=== PATIENT | male | born 1980 | race Caucasian/White ===

== ENCOUNTER 2023-09-07 16:02 | Emergency (ER) | payer MEDICARE, OTHER, SELFPAY ==
[2023-09-07] VITALS (7 sets, daily range): BP systolic 88–132; BP diastolic 40–80; BMI 27.5
[2023-09-07 17:04] LABS: % Basophils 0.7 % (0-2); % Eosinophils 1.7 % (0-6); % Immature Granulocytes 1.8 % (0-0.5); % Lymphocytes 16.9 % (20.5-51.1); % Monocytes 6.9 % (1.7-9.3); Absolute Basophils 0.1 10^3/uL (0-0.2); Absolute Eosinophils 0.2 10^3/uL (0-0.7); Absolute Immature Granulocytes 0.2 10^3/uL (0-0.05); Absolute Monocytes 0.8 10^3/uL (0.1-0.6); Absolute Neutrophils 8.6 10^3/uL (1.4-6.5); Hematocrit 32.1 % (39.0-52.0); Mean Corp Hgb Conc. 31.2 g/dL (33.0-37.0); Mean Corpuscular Hgb 27.9 pg (27.0-31.0); Mean Corpuscular Volume 89.7 fL (80.0-94.0); Mean Platelet Volume 8.3 fL (7.4-10.4); Nucleated Red Blood Cells % 0 % (-); Red Blood Cell Count 3.58 10^6/uL (4.70-6.10); Red Cell Dist. Width 14.7 % (11.5-14.5)
[2023-09-07 17:18] LABS: Urine Albumin 1+ (Neg - Trace); Urine Bilirubin Negative (Negative); Urine Character Slightly Cloudy (Clear); Urine Color Yellow; Urine Glucose Negative (Negative); Urine Ketone Negative (Negative); Urine Leukocyte 2+ (Negative); Urine Nitrite Negative (Negative); Urine Occult Blood 4+ (Negative); Urine Urobilinogen Negative (Neg - 1+)
[2023-09-07 17:22] LABS: Platelet Count 612 10^3/uL (130-400)
[2023-09-07 17:24] LABS: Urine Squamous Cell 0-2 /LPF (Few)
[2023-09-07 17:26] LABS: Urine Bacteria Many (Negative); Urine Red Blood Cell 26-30 /HPF (0-2); Urine White Cell 30-40 /HPF (0-5)
[2023-09-07 17:26] LABS: Lactic Acid 0.7 mmol/L (0.7-2.0)
[2023-09-07 17:27] LABS: ALT (SGPT) 41 U/L (0-50); AST (SGOT) 34 U/L (17-59); Alkaline Phosphatase 535 U/L (38-126); Blood Urea Nitrogen 26 mg/dl (9-20); Calcium 10.7 mg/dl (8.4-10.2); Carbon Dioxide 31 mmol/L (22-30); Chloride 91 mmol/L (98-107); Estimated Creatinine Clearance 68 ml/min; Glucose 101 mg/dl (70-99); Potassium 4.6 mmol/L (3.5-5.1); Sodium 133 mmol/L (135-145); Total Bilirubin 0.6 mg/dl (0.2-1.3); Total Protein 7.7 g/dl (6.3-8.2); eGFR > 60.00
--- NOTE | 2023-09-07 18:13 | ED.GENMED ---
History of Present Illness
<LUX Sumner - Last Filed: 09/08/23 00:55>
General
Chief Complaint: Change in Mental Status
Source: patient and family (Mother)
Exam Limitations: none
Time Seen by Provider: 09/07/23 17:53
Travel History
Have you had any contact with someone who has COVID-19?: Unable to Answer
Do you have any symptoms of coronavirus? Fever > 100 degrees, chills, cough, shortness of breath, sore throat, loss of taste or smell, muscle aches, or headache?: Unable to Answer
History of Present Illness
History of Present Illness:
This is a 43 year old male that comes in with c/o change in mental status. Mother states that he is at [facility]. Today he was fine in the morning with there meeting. Then this afternoon he became confused around 1pm. States that he has been in
and out of the hospital recently and most of his care was at [facility]. States that Dr. Bello wound like patient sent to [facility]. Patient able to answer that he was nauseated today, vomited once and is occasionally dizzy. Denies any fever, chills,
chest pain, SOB, headache. Patient has indwelling naik.
Past History
<LUX Sumner - Last Filed: 09/08/23 00:55>
Past History
ED Past Medical History: Asthma, HTN, Psychiatric (Depression, ) and Other (necrotic bowel, )
ED Past Surgical History: Orthopedic (Left BKA) and Other (failed hernia Surgery with open abdominal wounds, Colostomy with reversal to Ileostomy)
Social History
Tobacco: Non-smoker
Alcohol: Former
Personal: Single
Living: halfway
Review of Systems
<LUX Sumner - Last Filed: 09/08/23 00:55>
Review of Systems
Other source history: family
All Other Systems: ROS reviewed and negative except as documented in HPI and ROS
Constitutional: Reports chills (according to mom); Denies fever
EENT: Reports no symptoms
Respiratory: Reports no symptoms; Denies cough or trouble breathing
Cardiac: Reports no symptoms; Denies chest pain
ABD/GI: Reports nausea and vomiting
: Reports other
Musculoskeletal: Reports no symptoms
Skin: Reports no symptoms
Neurological: Reports dizzy; Denies headache
Psychiatric: Reports no symptoms
Phy Exam
<LUX Sumner - Last Filed: 09/08/23 00:55>
General Physical Exam
General Presentation: no apparent distress
General age: appears stated age
General Skin: warm and dry
General Habitus: debilitated
General Mental: confused (In and out of Confusion. Patient oriented to place and person )
General Hydration: dry mucous membranes
ENT Exam
ENT Exam: TM's normal, pharynx normal and neck supple
Eye Exam
Eye Exam: EOMI
Cardiovascular Exam
Cardiovascular Exam: no edema, normal peripheral pulses (right leg) and tachycardia
Gastrointestinal Exam
Gastrointestinal Exam: no pulsatile mass, non distended, tender (tender to Touch, Open wounds noted on abd ) and other
External Findings: ileostomy
Musculoskeletal Exam
Musculoskeletal Exam: no edema
Skin Exam
Skin Exam: normal color, warm/dry and redness (right abd into flank. Increased warmth, sacral decub with wound vac. Negative for any redness at site. )
Psychiatric Exam
Psychiatric Exam: other (occasionally oriented and then confused at times.)
Course
<LUX Sumner - Last Filed: 09/08/23 00:55>
Orders/Labs/Results
Orders:
Orders
09/07/23 16:08
Electrocardiogram (*1) Urgent
Reason for Study: Other
Other Reason for Exam: Possible Sepsis
Cardiac Monitoring- Treatment ONCE
IV Insert/Care/Rem.- Treatment PRN
O2 Therapy [RESP] Urgent
Titrate/Wean O2 to maintain O2 sat greater than (%): 93
Special Instructions: TO MAINTAIN CONTINUOUS O2 SATS > OR = 93%
Pulse Ox/cont/shift [RESP] Urgent
Quantity: 1
Special Instructions: CONTINUOUS
09/07/23 16:09
EKG- Treatment ONCE
09/07/23 16:52
Complete Blood Count/With Diff Urgent
Comprehensive Metabolic Panel Urgent
Lactic Acid Q4H
Comment: ON ICE, CANCEL 2ND ORDER IF FIRST LACTIC ACID LEVEL <2
Blood Culture Q30M
ANNIE Source: Blood/Venous
Specimen Description:
Comment: FROM 2 SEPARATE SITES
Blood Culture Q30M
ANNIE Source: Blood/Venous
Specimen Description:
Comment: FROM 2 SEPARATE SITES
09/07/23 16:53
Urinalysis Reflex To Culture Urgent
Date Specimen was Collected: 09/07/23
Time Specimen was Collected: 16:09
Urine Microscopic Reflex Cult Urgent
Urine Culture Urgent
ANNIE Source: U
Specimen Description:
Date Specimen was Collected: 09/07/23
Time Specimen was Collected: 16:09
09/07/23 18:12
0.9% Sodium Chloride 1000 ml [Nss] 1,000 ml IV BOLUS
Piperacillin/Tazo 3.375 Gram [Zosyn] 3.375 gram in 50 ml IV NOW
09/07/23 18:41
COVID-19 Antigen Urgent
Source: Nasal Swab
Influenza A+B Rapid Molecular Urgent
ANNIE Source: Nasal Swab
Specimen Description:
09/07/23 23:16
0.9% Sodium Chloride 1000 ml [Nss] 1,000 ml IV BOLUS
09/07/23 23:57
Oxycodone [Roxicodone] 20 mg PO NOW STA
Abnormal Lab Results
09/07/23 09/07/23
16:52 16:53
WBC 12.0 H 10^3/uL
(4.8-10.8)
RBC 3.58 L 10^6/uL
(4.70-6.10)
Hgb 10.0 L g/dL
(13.0-18.0)
Hct 32.1 L %
(39.0-52.0)
MCHC 31.2 L g/dL
(33.0-37.0)
RDW 14.7 H %
(11.5-14.5)
Plt Count 612 H 10^3/uL
(130-400)
Abs Immat Gran (auto) 0.2 H 10^3/uL
(0-0.05)
Absolute Neuts (auto) 8.6 H 10^3/uL
(1.4-6.5)
Absolute Monos (auto) 0.8 H 10^3/uL
(0.1-0.6)
Immature Gran % 1.8 H %
(0-0.5)
Lymphocytes % 16.9 L %
(20.5-51.1)
Sodium 133 L mmol/L
(135-145)
Chloride 91 L mmol/L
(98-107)
Carbon Dioxide 31 H mmol/L
(22-30)
BUN 26 H mg/dl
(9-20)
Creatinine 1.4 H mg/dL
(0.7-1.3)
Glucose 101 H mg/dl
(70-99)
Calcium 10.7 H mg/dl
(8.4-10.2)
Alkaline Phosphatase 535 H U/L
(38-126)
Albumin 3.0 L g/dl
(3.5-5.0)
Ur Occult Blood Reflex 4+ A
(Negative)
Leukocyte Esterase Rfl 2+ A
(Negative)
Urine RBC 26-30 A /HPF
(0-2)
Urine WBC (Reflex) 30-40 A /HPF
(0-5)
Urine Bacteria (Reflex) Many A
(Negative)
Urine Albumin (Reflex) 1+ A
(Neg - Trace)
09/07/23 16:52
09/07/23 16:52
Leukocytosis, H/H low. Plt elevated. Sodium slightly low. Chloride low, Dehydration. Glucose nonfasting. Alk phos elevation. Urine positive for infection. Lactic acid 0.7
Vital Signs
Initial and Last Documented VS:
Initial Vital Signs
Pulse Resp Pulse Ox
105 14 97
09/07/23 16:24 09/07/23 16:24 09/07/23 16:24
Last Documented Vital Signs
Temp Pulse Resp BP Pulse Ox
98.0 F 91 18 92/66 92
09/07/23 16:38 09/07/23 23:00 09/07/23 23:00 09/07/23 22:06 09/07/23 22:15
<Kuldeep HRita Oquendo DO - Last Filed: 09/07/23 21:35>
Orders/Labs/Results
Orders:
Orders
09/07/23 16:08
Electrocardiogram (*1) Urgent
Reason for Study: Other
Other Reason for Exam: Possible Sepsis
Cardiac Monitoring- Treatment ONCE
IV Insert/Care/Rem.- Treatment PRN
O2 Therapy [RESP] Urgent
Titrate/Wean O2 to maintain O2 sat greater than (%): 93
Special Instructions: TO MAINTAIN CONTINUOUS O2 SATS > OR = 93%
Pulse Ox/cont/shift [RESP] Urgent
Quantity: 1
Special Instructions: CONTINUOUS
09/07/23 16:09
EKG- Treatment ONCE
09/07/23 16:52
Complete Blood Count/With Diff Urgent
Comprehensive Metabolic Panel Urgent
Lactic Acid Q4H
Comment: ON ICE, CANCEL 2ND ORDER IF FIRST LACTIC ACID LEVEL <2
Blood Culture Q30M
ANNIE Source: Blood/Venous
Specimen Description:
Comment: FROM 2 SEPARATE SITES
Blood Culture Q30M
ANNIE Source: Blood/Venous
Specimen Description:
Comment: FROM 2 SEPARATE SITES
09/07/23 16:53
Urinalysis Reflex To Culture Urgent
Date Specimen was Collected: 09/07/23
Time Specimen was Collected: 16:09
Urine Microscopic Reflex Cult Urgent
Urine Culture Urgent
ANNIE Source: U
Specimen Description:
Date Specimen was Collected: 09/07/23
Time Specimen was Collected: 16:09
09/07/23 18:12
0.9% Sodium Chloride 1000 ml [Nss] 1,000 ml IV BOLUS
Piperacillin/Tazo 3.375 Gram [Zosyn] 3.375 gram in 50 ml IV NOW
09/07/23 18:41
COVID-19 Antigen Urgent
Source: Nasal Swab
Influenza A+B Rapid Molecular Urgent
ANNIE Source: Nasal Swab
Specimen Description:
09/07/23 23:16
0.9% Sodium Chloride 1000 ml [Nss] 1,000 ml IV BOLUS
09/07/23 23:57
Oxycodone [Roxicodone] 20 mg PO NOW STA
Abnormal Lab Results
09/07/23 09/07/23
16:52 16:53
WBC 12.0 H 10^3/uL
(4.8-10.8)
RBC 3.58 L 10^6/uL
(4.70-6.10)
Hgb 10.0 L g/dL
(13.0-18.0)
Hct 32.1 L %
(39.0-52.0)
MCHC 31.2 L g/dL
(33.0-37.0)
RDW 14.7 H %
(11.5-14.5)
Plt Count 612 H 10^3/uL
(130-400)
Abs Immat Gran (auto) 0.2 H 10^3/uL
(0-0.05)
Absolute Neuts (auto) 8.6 H 10^3/uL
(1.4-6.5)
Absolute Monos (auto) 0.8 H 10^3/uL
(0.1-0.6)
Immature Gran % 1.8 H %
(0-0.5)
Lymphocytes % 16.9 L %
(20.5-51.1)
Sodium 133 L mmol/L
(135-145)
Chloride 91 L mmol/L
(98-107)
Carbon Dioxide 31 H mmol/L
(22-30)
BUN 26 H mg/dl
(9-20)
Creatinine 1.4 H mg/dL
(0.7-1.3)
Glucose 101 H mg/dl
(70-99)
Calcium 10.7 H mg/dl
(8.4-10.2)
Alkaline Phosphatase 535 H U/L
(38-126)
Albumin 3.0 L g/dl
(3.5-5.0)
Ur Occult Blood Reflex 4+ A
(Negative)
Leukocyte Esterase Rfl 2+ A
(Negative)
Urine RBC 26-30 A /HPF
(0-2)
Urine WBC (Reflex) 30-40 A /HPF
(0-5)
Urine Bacteria (Reflex) Many A
(Negative)
Urine Albumin (Reflex) 1+ A
(Neg - Trace)
09/07/23 16:52
09/07/23 16:52
Vital Signs
Initial and Last Documented VS:
Initial Vital Signs
Pulse Resp Pulse Ox
105 14 97
09/07/23 16:24 09/07/23 16:24 09/07/23 16:24
Last Documented Vital Signs
Temp Pulse Resp BP Pulse Ox
98.0 F 91 18 92/66 92
09/07/23 16:38 09/07/23 23:00 09/07/23 23:00 09/07/23 22:06 09/07/23 22:15
<LUX Sumner - Last Filed: 09/08/23 00:55>
MDM/Problems Addressed
Differential Diagnosis Includes:
Abd wall cellulitis, UTI
MDM/Problems Addressed:
This is a 43 year old male that is brought in with change in mental status. Mom states that he was fine this morning when they had a meeting and then around 1pm he became confused and had rigors. States that she spoke with the Bariatric doctor at
[facility] as the patient was there 1.5 weeks ago. States that they would like him transferred to [facility].
Will get labs and Urine. Spoke with Dr. Bello and he will except patient.
There is a bed at [facility] for patient and he will be transferred.
Chronic conditions affecting care:
Open abd wounds.
Acute Exacerbation and/or Progression of Chronic Illness:
Open abdominal wounds
<LUX Sumner - Last Filed: 09/08/23 00:55>
*Pulse Oximetry
Patient hypoxic: no
*EKG
Interpreted by ED Provider?: Yes
Heart Rate: 107
Rate: tachycardiac
Rhythm: sinus
Disputanta: normal axis
Interval: normal interval
QRS Pattern: normal QRS
Ischemia: no ischemia
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
Rate: normal
Interpretation: normal
Heart Rate: 71
Rhythm: sinus
*Critical Care Note
Total Time (30-74mins, 75-104mins- exclusive of procedures): Not Applicable
ED Attending Note
<LUX Sumner - Last Filed: 09/08/23 00:55>
-
Portions of this chart may have been created with voice recognition software.� Occasional wrong word or��sound alike� substitutions may have occurred due to the inherent limitations of voice recognition software.
<Kuldeep Oquendo DO - Last Filed: 09/07/23 21:35>
ED Attending Note
Patient seen and examined by attending physician: Yes
I performed the substantive portion of visit, reviewed & personally made and approve the management plan that is documented in note by myself or BETITO.: Yes
ED Attending Note:
I agree with Olivia's note
Pt sent to ER from [facility] for confusion, lethergy.
Complicated surgical history
Pt arrived lethargic. Now improved mental status after ivf.
Abd: ileostomy, open abd wound,
Skin: erythema rigth flank.
Suspect cellulitis. IVF, iv abx, transfer to [place] where his surgerier were performed.
Discharge Plan
Departure
Patient Disposition: Acute Care Hospital
Date of Disposition: 09/07/23
Time of Disposition: 18:53
Patient with high blood pressure during this ER visit?: No
Condition: Fair
Covid-19: Not Applicable
Discharge Problem:
Altered mental status, Urinary tract infection, Cellulitis of right abdominal wall
Prescriptions:
No Action
multivitamin Tablet
1 tab PO DAILY
acetaminophen 325 mg Tablet
650 mg PO Q6H PRN (Reason: mild pain/temp>100.4)
ondansetron HCl 8 mg Tablet
8 mg PO Q12H PRN (Reason: nausea/vomiting)
quetiapine 200 mg Tablet
200 mg PO HS
magnesium hydroxide [Milk of Magnesia] 400 mg/5 mL Suspension
30 ml PO HS PRN (Reason: if no bm x 3 days)
lorazepam 1 mg Tablet
1 mg PO Q6H PRN (Reason: anxiety)
fluticasone propionate [Flonase] 50 mcg/actuation [place],Suspension
1 spray INTRANASAL DAILY
quetiapine 50 mg Tablet
50 mg PO DAILY
oxycodone 20 mg Tablet
20 mg PO Q4H PRN (Reason: severe pain)
methocarbamol 500 mg Tablet
500 mg PO TID
acetaminophen 650 mg Suppository
650 mg WA Q4H PRN (Reason: mild pain/temp>100)
oxybutynin chloride 15 mg tablet extended release 24hr
30 mg PO DAILY
miconazole nitrate 2 % Cream
1 applic TOPICAL BID
Rx Instructions:
apply to torso
loperamide 2 mg Tablet
2 mg PO Q6H PRN (Reason: diarrhea)
acetaminophen 500 mg Tablet
1,000 mg PO Q6H PRN (Reason: mild pain)
bisacodyl [Dulcolax (bisacodyl)] 10 mg Suppository
10 mg WA DAILY PRN (Reason: if no results for MOM)
magnesium oxide 500 mg magnesium Tablet
500 mg PO BID
testosterone cypionate 200 mg/mL oil
200 mg IM Q14D
albuterol sulfate 90 mcg/actuation HFA aerosol inhaler
2 puff INHALATION R Q4 PRN (Reason: sob/wheezing)
amitriptyline 100 mg tablet
100 mg PO BID
midodrine 10 mg Tablet
15 mg PO TID
bupropion HCl 150 mg tablet extended release 24 hr
150 mg PO DAILY
pregabalin 50 mg Capsule
50 mg PO TID
chlorhexidine gluconate 0.12 % Mouthwash
15 ml BUCCAL BID
fluticasone propion-salmeterol [Advair HFA] 115-21 mcg/actuation Hfa Aerosol Inhaler
2 puff INHALATION R BID
omeprazole 20 mg Tablet,Delayed Release (Dr/Ec)
40 mg PO DAILY
oxycodone 20 mg Tablet
20 mg PO DAILY
Referrals:
Madi Rich MD [Family Provider] -
Hospital Transfer
Other hospital: [facility]
I certify that the patient requires transfer: Yes
Discussed case with accepting physician: Dr. Bello
Reason for transfer: higher level of care and continuity of care PCP
Interventions
Interventions:
*Risk Screen - Suicide Last Done: 09/07/23 16:41
*Neglect/Abuse Screening Last Done: 09/07/23 16:41
*ED COVID-19 Vaccine History Last Done: 09/07/23 16:42
ED- Neurological Assessment Last Done: 09/07/23 18:24
ED Swallowing Screen Last Done: 09/07/23 21:20
[2023-09-07] MEDS: NSS 1000 IV ×2 (18:27→23:18)
[2023-09-07] MEDS: ZOSYN 50 IV (18:27)
[2023-09-07 19:05] LABS: COVID-19 Antigen Negative (Negative)
[2023-09-08] VITALS: BP 82/51
[2023-09-08] MEDS: ROXICODONE 20 MG PO (00:05)
[2023-09-08 01:01] VITALS: BP 89/55
[2023-09-08] MEDS: ProAmatine 15 MG PO (01:30)
[2023-09-08 02:00] VITALS: BP 100/54
== END 2023-09-08 02:45 | disposition short-term general hospital (02) ==
LOC: EMR 16:02
PROVIDERS: Clinical Nurse Specialist Family Health; Emergency Medicine; EMERGENCY PHYSICIAN Emergency Medicine; FAMILY PHYSICIAN Internal Medicine
DX: R41.82 Altered mental status, unspecified (principal); N39.0 Urinary tract infection, site not specified; L03.311 Cellulitis of abdominal wall; J45.909 Unspecified asthma, uncomplicated; I10 Essential (primary) hypertension; F32.A Depression, unspecified; Z89.512 Acquired absence of left leg below knee
CPT/HCPCS: 99283; 96365; 96361; 80053; 81003; 81015; 83605; 85025; 87040; 87086; 87502; 87811; 93005

== ENCOUNTER 2023-09-28 21:25 | Inpatient (IN) | payer MEDICARE, OTHER, SELFPAY ==
[2023-09-28] VITALS (34 sets, daily range): BP systolic 60–132; BP diastolic 33–93; BMI 31.1
[2023-09-28 18:39] LABS: Glucose - Point of Care 95 mg/dl (70-99)
[2023-09-28 18:49] LABS: % Basophils 0.5 % (0-2); % Eosinophils 2.5 % (0-6); % Immature Granulocytes 1.8 % (0-0.5); % Lymphocytes 20.7 % (20.5-51.1); % Monocytes 7.4 % (1.7-9.3); % Neutrophils 67.1 % (42.2-75.2); Absolute Basophils 0.1 10^3/uL (0-0.2); Absolute Eosinophils 0.3 10^3/uL (0-0.7); Absolute Immature Granulocytes 0.2 10^3/uL (0-0.05); Absolute Lymphocytes 2.8 10^3/uL (1.2-3.4); Absolute Neutrophils 8.9 10^3/uL (1.4-6.5); Hematocrit 32.4 % (39.0-52.0); Hemoglobin 10.2 g/dL (13.0-18.0); Mean Corp Hgb Conc. 31.5 g/dL (33.0-37.0); Mean Corpuscular Hgb 27.3 pg (27.0-31.0); Mean Corpuscular Volume 86.9 fL (80.0-94.0); Nucleated Red Blood Cells % 0 % (-); Platelet Count 461 10^3/uL (130-400); Red Blood Cell Count 3.73 10^6/uL (4.70-6.10); Red Cell Dist. Width 14.9 % (11.5-14.5); White Blood Cell Count 13.3 10^3/uL (4.8-10.8)
[2023-09-28 19:06] LABS: Lactic Acid 0.9 mmol/L (0.7-2.0)
[2023-09-28 20:05] LABS: Urine Albumin 1+ (Neg - Trace); Urine Bilirubin 1+ (Negative); Urine Character Very Cloudy (Clear); Urine Color Yellow; Urine Glucose Negative (Negative); Urine Ketone Trace (Negative); Urine Leukocyte 2+ (Negative); Urine Nitrite Negative (Negative); Urine Occult Blood 3+ (Negative); Urine Urobilinogen Negative (Neg - 1+)
[2023-09-28 20:10] LABS: Urine Red Blood Cell 0-2 /HPF (0-2); Urine White Cell 21-25 /HPF (0-5)
[2023-09-28 20:11] LABS: Urine Bacteria Many (Negative)
--- NOTE | 2023-09-28 20:19 | ED.GENMED ---
History of Present Illness
General
Chief Complaint: Change in Mental Status
Source: patient, family, ambulance crew and detention
Exam Limitations: altered mental status
Time Seen by Provider: 09/28/23 18:41
Nursing documentation reviewed up to this point in time: agreed with
Travel History
Have you had any contact with someone who has COVID-19?: Unable to Answer
Do you have any symptoms of coronavirus? Fever > 100 degrees, chills, cough, shortness of breath, sore throat, loss of taste or smell, muscle aches, or headache?: Unable to Answer
History of Present Illness
History of Present Illness:
Patient presents to ED from detention secondary to mental status change noted along with hypotension this afternoon. Per paramedics, patient was hypotensive and that this is difficult to arouse when evaluated at scene. Upon arrival, patient is
awake and responding to simple commands. However, patient does not offer any additional information. Per family at bedside, patient unfortunately has had multiple similar episodes in the past, including last month when he was transferred to
[facility]. No source of infection was noted but his mental status improved when given IV fluids with improved blood pressure.
Past History
Past History
ED Past Medical History: Asthma, HTN, Psychiatric (Depression, ) and Other (necrotic bowel, )
ED Past Surgical History: Orthopedic (Left BKA) and Other (failed hernia Surgery with open abdominal wounds, Colostomy with reversal to Ileostomy)
Social History
Tobacco: Non-smoker
Alcohol: Former
Personal: Single
Living: detention
Review of Systems
Review of Systems
Allergies reviewed?: Yes
Unable to obtain full review of systems at this time due to: due to acuity
All Other Systems: Not applicable
Phy Exam
Physical Exam
Physical Exam:
Physical Exam
General: no apparent distress, afebrile.
Head: nc/at.
Neck: supple. no meningeal signs.
Heart: s1/s2 regular rate and rhythm, no murmur. equal radial pulses.
Lungs: no acute respiratory distress. clear bilaterally
Abdomen: normal bowel sounds. not tender. suprapubic catheter in place.
Neuro: eyes open and answering to simple commands.
Skin: no rash. 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
Extremities: no edema. left BKA
Course
Orders/Labs/Results
Orders:
Orders
09/28/23 Dinner
Regular
At Your Request: Limited Participation
09/28/23 18:36
Electrocardiogram (*1) Urgent
Reason for Study: Other
Other Reason for Exam: Possible Sepsis
09/28/23 18:37
EKG- Treatment ONCE
09/28/23 18:39
Complete Blood Count/With Diff Urgent
Lactic Acid Q4H
Comment: ON ICE, CANCEL 2ND ORDER IF FIRST LACTIC ACID LEVEL <2
09/28/23 18:51
Blood Culture Q30M
ANNIE Source: Blood/Venous
Specimen Description:
Comment: FROM 2 SEPARATE SITES
Blood Culture Q30M
ANNIE Source: Blood/Venous
Specimen Description:
Comment: FROM 2 SEPARATE SITES
09/28/23 19:50
Urinalysis Reflex To Culture Urgent
Date Specimen was Collected: 09/28/23
Time Specimen was Collected: 19:49
Urine Microscopic Reflex Cult Urgent
Urine Culture Urgent
ANNIE Source: U
Specimen Description:
Date Specimen was Collected: 09/28/23
Time Specimen was Collected: 19:49
09/28/23 20:18
Piperacillin/Tazo 3.375 Gram [Zosyn] 3.375 gram in 50 ml IV NOW
09/28/23 20:25
Comprehensive Metabolic Panel Urgent
09/28/23 20:47
NORepinephrine 4 MG/250 ML [Levophed] 4 mg in 250 ml .ROUTE .STK-MED
09/28/23 21:00
NORepinephrine 4 MG/250 ML [Levophed] 4 mg in 250 ml IV PER PROTOCOL
Initial dose in mcg/min, then titrate:: 5
Titrate to keep:: MAP > 65 mmHg
Titrate by mcg/min:: 1-2 mcg/min
Frequency of titrations (minutes):: 5
Maximum dose in ICU in mcg/min:: 30
Maximum dose in IMU in mcg/min:: 8
Maximum dose in IVU in mcg/min:: 4
Begin to taper infusion when:: Remained at goal for 4hrs
Taper by mcg/min:: 1-2 mcg/min
Frequency of taper (minutes) if patient maintains goal:: 30
Taper to off?: Yes
If infusion off & no longer maintaining goal:: Contact Provider
09/28/23 21:08
Admit/Transfer Patient As Directed
Co-Sign Provider:
Level of Care: Inpatient admission
Assign to:: ICU
Physician / Group: anne
Diagnosis: septic shock infected sacral decubirus
Reason for Hospitalization: septic shock infected sacral decubirus
Expected length of stay greater than two midnights?: Yes
ELOS- Estimated Length of Stay in days: 2
I certify the patient meets the requirements for IP care: Yes
09/28/23 21:09
Code Status As Directed
Resuscitation Status: Full Code
09/28/23 21:17
Vancomycin [Vancocin] 2,000 mg 0.9% Sodium Chloride 500 ml [Nss] 500 ml IV NOW
09/28/23 21:21
WOUND/OSTOMY CONSULT Routine
Reason for Consult: sacral debub
09/28/23 22:40
0.9% Sodium Chloride 1000 ml [Nss] 1,000 ml IV 120 mls/hr
Acetaminophen [Tylenol/Feverall] 650 mg RECTAL Q4HPRN PRN
Acetaminophen [Tylenol] 650 mg PO Q4HPRN PRN
Albuterol [ProAIR HFA INHALER] 2 puff INH R Q4HPRN PRN
Bisacodyl [Dulcolax] 10 mg RECTAL DAILYPRN PRN
Guaifenesin [Mucinex] 1,200 mg PO [id number] PRN
Magnesium Hydroxide [Milk of Magnesia] 30 ml PO HSPRN PRN
Pregabalin [Lyrica] 50 mg PO TID
methocarbamol 0 mg PO TID
09/28/23 22:40
SURGICAL CONSULT Routine
Consulting Provider: Kenrick Scruggs
Was physician already notified: Yes
UROLOGY CONSULT Routine
Consulting Provider: Carlos Zapata
Was physician already notified: Yes
Activity As Directed
Activity Level: As Tolerated
Vital Signs As Directed
Frequency: Per unit guidelines
DX Deep Vein Thrombosis Video Routine
09/28/23 22:53
Loperamide [Imodium] 2 mg PO Q6HPRN PRN
09/28/23 22:59
Ondansetron HCl [Zofran] 8 mg PO [id number] PRN
09/28/23 23:00
Oxycodone [Roxicodone] 20 mg PO Q4HPRN PRN
09/29/23 02:00
Meropenem [Merrem] 500 mg IV Q6H
Sterile Water [Sterile Water For Injection] 10 ml IV Q6H
09/29/23 06:26
Complete Blood Count/With Diff IN AM
Comprehensive Metabolic Panel IN AM
09/29/23 08:00
Amitriptyline [Elavil] 100 mg PO BID
Bupropion(24Hr)Extended Releas [WELLBUTRIN XL (24 hour extended release)] 150 mg PO DAILY
Chlorhexidine Oral Rinse 0.12% [Peridex 0.12% Oral Rinse] 15 ml PO BID
Fluticasone/Salmeterol 115/21 [Advair Hfa 115/21 Mcg Inhaler] 2 puff INH R BID
Heparin 5,000 units SC Q12
Miconazole Nitrate [Antifungal Clear] 1 applic TOPICAL BID
Midodrine [ProAmatine] 15 mg PO TID @ 0800,1200,1700
Multivitamin [Theragran] 1 tablet PO DAILY
Oxybutynin Chloride [Ditropan] 5 mg PO QID
Oxycodone [Roxicodone] 20 mg PO DAILY
Pantoprazole [Protonix] 40 mg PO DAILY
Abnormal Lab Results
09/28/23 09/28/23 09/28/23
18:39 19:50 20:25
WBC 13.3 H 10^3/uL
(4.8-10.8)
RBC 3.73 L 10^6/uL
(4.70-6.10)
Hgb 10.2 L g/dL
(13.0-18.0)
Hct 32.4 L %
(39.0-52.0)
MCHC 31.5 L g/dL
(33.0-37.0)
RDW 14.9 H %
(11.5-14.5)
Plt Count 461 H 10^3/uL
(130-400)
Abs Immat Gran (auto) 0.2 H 10^3/uL
(0-0.05)
Absolute Neuts (auto) 8.9 H 10^3/uL
(1.4-6.5)
Absolute Monos (auto) 1.0 H 10^3/uL
(0.1-0.6)
Immature Gran % 1.8 H %
(0-0.5)
Sodium 130 L mmol/L
(135-145)
BUN 25 H mg/dl
(9-20)
Calcium 11.4 H mg/dl
(8.4-10.2)
Alkaline Phosphatase 506 H U/L
(38-126)
Albumin 3.0 L g/dl
(3.5-5.0)
Urine Ketones Trace A
(Negative)
Ur Occult Blood Reflex 3+ A
(Negative)
Urine Bilirubin 1+ A
(Negative)
Leukocyte Esterase Rfl 2+ A
(Negative)
Urine WBC (Reflex) 21-25 A /HPF
(0-5)
Urine Bacteria (Reflex) Many A
(Negative)
Urine Albumin (Reflex) 1+ A
(Neg - Trace)
09/28/23 18:39
09/28/23 20:25
Vital Signs
Initial and Last Documented VS:
Initial Vital Signs
Temp Pulse Resp BP Pulse Ox
98.9 F 100 27 100/79 97
09/28/23 18:32 09/28/23 18:32 09/28/23 18:32 09/28/23 18:32 09/28/23 18:32
Last Documented Vital Signs
Temp Pulse Resp BP Pulse Ox
97.5 F 88 12 100/66 100
09/29/23 14:56 09/29/23 17:45 09/29/23 17:45 09/29/23 17:41 09/29/23 17:45
MDM/Problems Addressed
MDM/Problems Addressed:
Mental status improving with IV hydration. Patient remains afebrile, but hypotensive. Urinalysis noted. However, difficult to exclude potential colonization due to chronic in dwelling catheter. Patient will be started on empiric antibiotics.
Blood culture pending. Patient will be admitted for further evaluation and treatment.
Levophed gtt started due to persistent hypotension.
*Critical Care Note
Total Time (30-74mins, 75-104mins- exclusive of procedures): 40 min
ED Attending Note
-
Portions of this chart may have been created with voice recognition software.� Occasional wrong word or��sound alike� substitutions may have occurred due to the inherent limitations of voice recognition software.
Discharge Plan
Departure
Patient Disposition: Admit
Date of Disposition: 09/28/23
Time of Disposition: 20:37
Admit to: Telemetry
Presentation/result/management discussed w/ accepting MD/DO: Hospitalist
Discharge Problem:
Altered mental status, Hypotension, Acute UTI
Interventions
Interventions:
*Risk Screen - Suicide Last Done: 09/28/23 23:07
*General Assessment Last Done: 09/28/23 23:07
*Neglect/Abuse Screening Last Done: 09/28/23 23:07
ED- Fall Risk Assessment Last Done: 09/28/23 18:42
*ED COVID-19 Vaccine History Last Done: 09/28/23 23:07
*Nursing Disposition Last Done: 09/28/23 23:07
ED- Pulmonary Assessment Last Done: 09/28/23 18:42
ED-Psychological Assessment Last Done: 09/28/23 23:09
ED- Neurological Assessment Last Done: 09/28/23 18:42
ED- Cardiac Assessment Last Done: 09/28/23 18:42
Discharge Date and Time
Discharge Date/Time: 09/28/23 23:09
[2023-09-28] MEDS: ZOSYN 50 IV (20:32)
[2023-09-28 20:48] LABS: ALT (SGPT) 43 U/L (0-50); AST (SGOT) 29 U/L (17-59); Alkaline Phosphatase 506 U/L (38-126); Blood Urea Nitrogen 25 mg/dl (9-20); Calcium 11.4 mg/dl (8.4-10.2); Carbon Dioxide 23 mmol/L (22-30); Chloride 99 mmol/L (98-107); Glucose 93 mg/dl (70-99); Potassium 4.6 mmol/L (3.5-5.1); Sodium 130 mmol/L (135-145); Total Bilirubin 0.5 mg/dl (0.2-1.3); Total Protein 7.6 g/dl (6.3-8.2); eGFR > 60.00
[2023-09-28] MEDS: LEVOPHED 250 IV (20:58)
--- NOTE | 2023-09-28 21:12 | VATNOTE ---
1999: called to place 2nd IV site; however was unsuccessful; [employer]OUNDER was attempting to get co worker to place US guided IV.
--- NOTE | 2023-09-28 21:17 | HPS.HSE ---
Family Physician
-
Family Physician: Madi Rich
Chief Complaint
-
altered mental status
History of Present Illness
43-year-old male past medical history of necrotizing fasciitis status post ureteral resection with chronic suprapubic catheter 8 years ago, asthma, hypertension, depression, ischemic bowel status post colon resection with ileostomy, anterior
abdominal wound, sacral decubitus wound, tracheostomy presenting from shelter due to mental status change and hypotension this afternoon. As per paramedics patient was hypotensive and patient was difficult to arouse. Upon arrival patient was
awake and responding to simple commands. Patient denies any fevers or chills, nausea vomiting or abdominal pain.
Patient suprapubic catheter was accidentally pulled 2 weeks ago and since then he has been having leaking from the catheter.
Patient was recently hospitalized at [facility] for hypotension unclear source requiring 4 pressors and resulting ischemic bowel status post bowel resection with ileostomy. He could not be extubated for 2 months and subsequently had
tracheostomy.
He has chronic suprapubic catheter for having necrotizing fasciitis throughout his abdomen status post urethral resection. He has a residual chronic wound which is slowly healing.
Patient has a sacral decubitus ulcer which has been more appearing infected recently. He has not been able to see wound care physician because he is in a shelter.
History of alcohol use in the past. No smoking history.
Medical History
Past Medical History
Past Medical History: Reports Other ( necrotizing fasciitis status post ureteral resection with chronic suprapubic catheter 8 years ago, asthma, hypertension, depression, ischemic bowel status post colon resection with ileostomy, anterior abdominal
wound, sacral decubitus wound, tracheostomy)
Past Surgical History: Reports Other (Orthopedic (Left BKA) and Other (failed hernia Surgery with open abdominal wounds, Colostomy with reversal to Ileostomy))
Social History
Tobacco: Non-smoker
Alcohol: Former
Drug: None
Family History
Family History: Not pertinent
Allergies / Home Medications
Allergies reflects when Allergies were last updated in [place].
Home Medications with original date entered in [place]
Allergy/Medication List:
Allergies
Allergy/AdvReac Type Severity Reaction Status Date / Time
No Known Allergies Allergy Verified 09/28/23 18:47
Home Medications
acetaminophen 325 mg tablet 650 mg PO Q6H PRN mild pain/temp>100.4 08/12/23
fluticasone propionate 50 mcg/actuation nasal spray,suspension 1 spray intranasal DAILY 08/12/23
magnesium hydroxide 400 mg/5 mL oral suspension (Milk of Magnesia) 30 ml PO HS PRN if no bm x 3 days 08/12/23
multivitamin 1 tab PO DAILY 08/12/23
ondansetron HCl 8 mg tablet 8 mg PO Q12H PRN nausea/vomiting 08/12/23
oxycodone 20 mg tablet 20 mg PO Q4H PRN severe pain 08/12/23
quetiapine 200 mg tablet 200 mg PO HS 08/12/23
quetiapine 50 mg tablet 50 mg PO DAILY 08/12/23
acetaminophen 500 mg tablet 1,000 mg PO Q6H PRN mild pain 09/07/23
acetaminophen 650 mg rectal suppository 650 mg ME Q4H PRN mild pain/temp>100 09/07/23
albuterol sulfate 90 mcg/actuation aerosol inhaler 2 puff inhalation R Q4 PRN sob/wheezing 09/07/23
amitriptyline 100 mg tablet 100 mg PO BID 09/07/23
bisacodyl 10 mg rectal suppository (Dulcolax (bisacodyl)) 10 mg ME DAILY PRN if no results for MOM 09/07/23
bupropion HCl 150 mg 24 hr tablet, extended release 150 mg PO DAILY 09/07/23
chlorhexidine gluconate 0.12 % mouthwash 15 ml PO BID 09/07/23
fluticasone propionate 115 mcg-salmeterol 21 mcg/actuation HFA inhaler (Advair HFA) 2 puff inhalation R BID 09/07/23
loperamide 2 mg tablet 2 mg PO Q6H PRN diarrhea 09/07/23
methocarbamol 500 mg tablet 500 mg PO TID 09/07/23
miconazole nitrate 2 % topical cream 1 applic topical BID 09/07/23
midodrine 10 mg tablet 15 mg PO TID 09/07/23
omeprazole 20 mg tablet,delayed release 40 mg PO DAILY 09/07/23
oxybutynin chloride 15 mg tablet,extended release 24 hr 30 mg PO DAILY 09/07/23
oxycodone 20 mg tablet 20 mg PO DAILY 09/07/23
pregabalin 50 mg capsule 50 mg PO TID 09/07/23
testosterone cypionate 200 mg/mL intramuscular oil 200 mg IM Q14D 09/07/23
guaifenesin 600 mg tablet, extended release 12 hr 600 mg PO Q4H PRN cough 09/28/23
Review of Systems
-
History Source: Patient
A 12 point ROS was completed and negative except as noted: Yes
Constitutional: Reports No Symptoms
EENT: Reports No Symptoms
Respiratory: Reports No Symptoms
Cardiac: Reports No Symptoms
Abdomen/GI: Reports No Symptoms
: Reports No Symptoms
Musculoskeletal: Reports No Symptoms
Skin: Reports No Symptoms
Neurological: Reports No Symptoms
Endocrine: Reports No Symptoms
Hematologic/Lymphatic: Reports No Symptoms
Psych: Reports No Symptoms
Physical Exam
Vital Signs
Vital Signs
Temp Pulse Resp BP Pulse Ox
98.9 F 85 18 78/64 97
09/28/23 18:32 09/28/23 21:00 09/28/23 21:00 09/28/23 21:00 09/28/23 21:00
Physical Exam
General: Well Developed, Well Nourished and No Apparent Distress
HEENT: NormoCephalic, Moist mucous membranes and Atraumatic
Respiratory: Clear
Cardiac: S1/S2 and Regular Rhythm; No Murmur or Rub
GI: Soft, Non Tender, Non Distended and Normal Bowel Sounds; No Organomegaly
Rectal: Deferred by Provider
Musculoskeletal: No Clubbing, No Cyanosis and No Edema
Skin: No Rash
Neuro: Nonfocal/grossly intact
Laboratory Results
-
09/28/23 18:39
09/28/23 20:25
Laboratory Results
Lactic Acid Cancelled 09/28/23 22:45
Total Bilirubin 0.5 mg/dl (0.2-1.3) 09/28/23 20:25
AST 29 U/L (17-59) 09/28/23 20:25
ALT 43 U/L (0-50) 09/28/23 20:25
Alkaline Phosphatase 506 U/L (38-126) H 09/28/23 20:25
Data Reviewed
-
Lab Data: Labs Reviewed by me
Old Records: Reviewed
Impression/Plan
-
IMPRESSION:
PLAN:
# Septic shock (leukocytosis, tachycardia, hypotension) secondary to infected sacral decubitus wound versus suprapubic associated UTI
-Blood pressure 60s
-see individually below
-Check blood cultures
-Patient given second liter of IV fluids and still hypertensive
-Levophed
# Infected sacral decubitus wound
-Sacral wound appears large, necrotic with purulent drainage
-IV fluids
-Zosyn given, switch to vancomycin and meropenem given severe hypotension and complex medical history and susceptibility to resistant organism
-Levophed to be started
-No prior culture data available here
-Wound care
-Surgery consulted for debridement after patient more hemodynamically stable
#Possible suprapubic catheter associated UTI
-Urinalysis shows 21-25 WBC, +2 leukocyte esterase
-Urine culture pending
-Urology consulted to replace suprapubic catheter
-Meropenem to cover UTI
# Anterior abdominal wound
# History of necrotizing fasciitis of abdomen status post urethral stricture with chronic suprapubic catheter
-Anterior abdominal wound appears to show granulation tissue and appears to be healing
# Hypercalcemia
-IV fluids
-Check PTH
# Mild hyponatremia
-Monitor with IV fluids
History of ischemic bowel status post bowel resection with ileostomy
Recent tracheostomy
Chronic pain secondary to wounds
-Continue pregabalin, oxycodone
Orthostatic hypotension
-Continue midodrine
Asthma
-Continue inhalers
Anxiety/depression
-Continue amitriptyline, bupropion, Seroquel
Chronic anemia
-Hemoglobin stable
Full code
DVT prophylaxis�heparin
Regular diet
--- NOTE | 2023-09-28 21:49 | PHA.VAN.IN ---
Assessment
- Assessment
Renal Function: Appears similar to baseline (09/07/23 BASELINE SCR: 1.4)
Concomitant Antimicrobials: MEROPENEM
- Previous Dosing Experience
Previous Regimen: NONE
AUC Dosing Plan
- Dosing Variables
Dosing Weight (kg): 90
Dosing CrCl (ml/min): 80
Vd coefficient (L/kg): 0.6
- Empiric Dosing
Initial / Loading Dose: 2GM
Maintenance Regimen: 750MG IV Q12H
Estimated AUC (mcg*h/mL): 406
Estimated Peak (mcg*h/mL): 24.3
Estimated Trough (mcg/ml): 11.1
Estimated Half Life (H): 9.8
Pharmacokinetics Vancomycin I
- -
Patient Age: 43
Patient Sex: Male
Vancomycin Day #: 1
Indication: Skin And Soft Tissue (INFECTED SACAL DECUB/SEPSIS)
Requesting Provider: ANALILIA
Height / Weight:
Height 5 ft 7 in
Actual Weight 90 kg
Pertinent Past Medical History: CHRONIC STERLING/SNF RESIDENT
- Vital Signs / Lab Results
Temp Pulse Resp BP Pulse Ox
98.9 F 85 18 78/64 97
09/28/23 18:32 09/28/23 21:00 09/28/23 21:00 09/28/23 21:00 09/28/23 21:00
Lab Results - Hematology
09/28/23
18:39
WBC 13.3 H
Lab Results - Chemistry
09/28/23 09/28/23 09/28/23
18:39 19:17 20:25
BUN Cancelled Cancelled 25 H
Creatinine Cancelled Cancelled 1.3
Estimated Creat Clear Cancelled Cancelled
Albumin Cancelled Cancelled 3.0 L
09/28/23 09/28/23
18:39 22:45
Lactic Acid 0.9 Cancelled
Lab Results - Urine
09/28/23
19:50
Urine Nitrite (Reflex) Negative
Leukocyte Esterase Rfl 2+ A
Urine WBC (Reflex) 21-25 A
Urine Bacteria (Reflex) Many A
[2023-09-28] MEDS: VANCOCIN 540 MG IV (21:57)
--- NOTE | 2023-09-28 23:15 | PTCARENOTE ---
pt adm to ICU from ER, pt disoriented to time, yelling and cursing during care and turning/skin care, 10 pain in sacral wound, afebrile, SR HR 70s, RAC & RH IV patent- Levophed gtt infusing at 5 mcg/min, SBP 130s- titrating per work list.
multiple wounds t/o- full documentation on work list. RA Sat 96%. ileostomy bag with thin light brown stool/large amt gas- skin care/appliance changed. suprapubic cath present- purulent around site. CHG cloths. POC discussed with pt.
[2023-09-28] MEDS: NSS 1000 IV (23:58)
[2023-09-29] VITALS (82 sets, daily range): BP systolic 70–126; BP diastolic 40–96; BMI 26.9
[2023-09-29] MEDS: STERILE WATER FOR INJECTION 10 ML IV ×4 (02:02→21:10)
[2023-09-29] MEDS: MERREM 500 MG IV ×4 (02:02→21:10)
[2023-09-29] MEDS: VANCOCIN 150 IV ×2 (05:32→17:42)
[2023-09-29 06:59] LABS: % Basophils 0.6 % (0-2); % Eosinophils 3.4 % (0-6); % Immature Granulocytes 1.8 % (0-0.5); % Lymphocytes 19.6 % (20.5-51.1); % Monocytes 8.5 % (1.7-9.3); % Neutrophils 66.1 % (42.2-75.2); Absolute Basophils 0.1 10^3/uL (0-0.2); Absolute Eosinophils 0.4 10^3/uL (0-0.7); Absolute Immature Granulocytes 0.2 10^3/uL (0-0.05); Absolute Lymphocytes 2.5 10^3/uL (1.2-3.4); Absolute Monocytes 1.1 10^3/uL (0.1-0.6); Absolute Neutrophils 8.3 10^3/uL (1.4-6.5); Hematocrit 27.9 % (39.0-52.0); Hemoglobin 8.3 g/dL (13.0-18.0); Mean Corp Hgb Conc. 29.7 g/dL (33.0-37.0); Mean Corpuscular Hgb 27.3 pg (27.0-31.0); Mean Corpuscular Volume 91.8 fL (80.0-94.0); Mean Platelet Volume 8.7 fL (7.4-10.4); Nucleated Red Blood Cells % 0 % (-); Platelet Count 400 10^3/uL (130-400); Red Blood Cell Count 3.04 10^6/uL (4.70-6.10); Red Cell Dist. Width 14.9 % (11.5-14.5); White Blood Cell Count 12.6 10^3/uL (4.8-10.8)
--- NOTE | 2023-09-29 07:10 | CON.INTV ---
Addendum entered and electronically signed by Marium Espinoza, 09/29/23 16:53:
Additional critical care time in review of records, 20 mins.
Addendum entered and electronically signed by Marium Espinoza, 09/29/23 16:34:
Extensive review of [facility] records:
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
- L BKA 03/2018
- VSG in 08/2017
Plan on 05/14/23 was for elective repair of incarcerated incisional hernia repair. He underwent ex lap with ORION, repair of hernia, plan to convert VSG to BPD/DS which was aborted due to short small bowel. He had abd wall reconstruction with muscle
flaps and mesh by Plastics.
Decompensated post op with hypotension, lactic acidosis, AJIR, coagulopathy (Elev INR), severe metabolic acidosis s/p intubation. CT showing abdominal wall hematoma, RLL PNA.
Taken back for re-exploration and evacuation of hematoma, with subtotal colectomy 05/15/23 for colonic necrosis and perforation causing fecal peritonitis.
On CRRT while in ICU, developed rapid AFib as well
Taken back to OR 05/27 and 05/28 for bleeding, ORION and placement of J tube, attempted ileostomy--eventual placement wtih closure 05/30/23
IR drain placed 06/08 for LLQ collection
Developed pneumomediastinum
Returned to OR on 07/09/23 for RLQ flap debridement
Pressure wound noted in coccyx with necrosis was noted as well during hospitalization.
ECHO 04/2023: mildly decreased LV function, EF 40-45%, grade I DD. Mildly decreased RV function, mild TR PAP n/a.
Readmitted to [facility] 08/18/23-08/27/23 for hypotension, acute electrolyte imbalances, rapid weight loss (376lbs in 04/2023 down to 278 on this admission), decreased PO intake. He is noted to have large unstageable wound, abd wound appeared clean/intact
with wound vac
There was a plan to debride sacral wound on 08/24, underwent procedure 08/25 noted to be stage 4, then [facility]
.
Original Note:
Consultation
Consultation Request
Date/Time Consultation Requested: 09/28/23
Date/Time Consultation Performed: 09/29/23
Medical History
-
History of Present Illness:
Patient is a 43-year-old male with previous history of necrotizing fasciitis status post resection, asthma, Crohn's disease with ischemic bowel status post colon resection with ileostomy, sacral decubitus wound, tracheostomy, bedbound for the last 6
months presenting to [facility] with mental status changes, abrupt onset. There was noted fever at home 103.6 Fahrenheit over the weekend which was treated and did not recur. On arrival to ER patient was notably hypotensive, reportedly in the
60s, placed on IV fluids. Given refractory shock, was admitted to ICU for pressor requirements. He does not provide any additional history due to change in mentation.
History provided by parents regarding patient's overall care. He has history of severe ETOH abuse 10 years ago which caused stupor/collapse at home and was found down/unresponsive/for unknown duration of time. This resulted in admission and nec
fasc of his pelvis which was heavily debrided with loss of genitals and resulted in chronic suprapubic tube. He was also s/p L BKA during that time as well for presumed vascular compromise to the area.
He was functional at home with his amputation for the past 10 years and good care for himself, lived alone in an apt.
He then decided to undergo elective bariatric surgery at [facility] this past April, with planned duodenal switch which was aborted due to poor anatomy and patient could not be closed postoperatively. He was evaluated by plastic surgery who
performed some interventions (unknown) including wound vac and closure. He had complications during that time which included ischemic bowel s/p colostomy and ileostomy, tracheostomy and feeding tube. His trach and feeding tube were subsequently
reversed since discharge. He has had poor appetite and poor rehab since discharge. He had previously been on TPN following surgeries. His mother confirmed that he has been bedbound since [facility] admission in April. He now has large stage IV
decub which she confirms is new for him, never had this at prior hospitalization.
Record request made to [facility].
Past Medical History
Past Medical History: Other (see list below)
Social History
Tobacco: Non-smoker
Alcohol: None
Drug: None
Family History
Family History: Reviewed & Not Pertinent
Allergies / Home Medications
Allergies
Allergy/AdvReac Type Severity Reaction Status Date / Time
No Known Allergies Allergy Verified 09/28/23 18:47
Home Medications
Medication Instructions Recorded Confirmed Last Taken Type
acetaminophen 325 mg tablet 650 mg PO Q6H PRN mild 08/12/23 09/28/23 Unknown History
pain/temp>100.4
fluticasone propionate 50 1 spray intranasal DAILY 08/12/23 09/28/23 Unknown History
mcg/actuation nasal
spray,suspension
magnesium hydroxide 400 mg/5 mL 30 ml PO HS PRN if no bm x 3 days 08/12/23 09/28/23 Unknown History
oral suspension (Milk of Magnesia)
multivitamin 1 tab PO DAILY 08/12/23 09/28/23 Unknown History
ondansetron HCl 8 mg tablet 8 mg PO Q12H PRN nausea/vomiting 08/12/23 09/28/23 Unknown History
oxycodone 20 mg tablet 20 mg PO Q4H PRN severe pain 08/12/23 09/28/23 Unknown History
quetiapine 200 mg tablet 200 mg PO HS 08/12/23 09/28/23 Unknown History
quetiapine 50 mg tablet 50 mg PO DAILY 08/12/23 09/28/23 Unknown History
acetaminophen 500 mg tablet 1,000 mg PO Q6H PRN mild pain 09/07/23 09/28/23 Unknown History
acetaminophen 650 mg rectal 650 mg AL Q4H PRN mild 09/07/23 09/28/23 Unknown History
suppository pain/temp>100
albuterol sulfate 90 mcg/actuation 2 puff inhalation R Q4 PRN 09/07/23 09/28/23 Unknown History
aerosol inhaler sob/wheezing
amitriptyline 100 mg tablet 100 mg PO BID 09/07/23 09/28/23 Unknown History
bisacodyl 10 mg rectal suppository 10 mg AL DAILY PRN if no results 09/07/23 09/28/23 Unknown History
(Dulcolax (bisacodyl)) for MOM
bupropion HCl 150 mg 24 hr tablet, 150 mg PO DAILY 09/07/23 09/28/23 Unknown History
extended release
chlorhexidine gluconate 0.12 % 15 ml PO BID 09/07/23 09/28/23 Unknown History
mouthwash
fluticasone propionate 115 2 puff inhalation R BID 09/07/23 09/28/23 Unknown History
mcg-salmeterol 21 mcg/actuation
HFA inhaler (Advair HFA)
loperamide 2 mg tablet 2 mg PO Q6H PRN diarrhea 09/07/23 09/28/23 Unknown History
methocarbamol 500 mg tablet 500 mg PO TID 09/07/23 09/28/23 Unknown History
miconazole nitrate 2 % topical 1 applic topical BID 09/07/23 09/28/23 Unknown History
cream
midodrine 10 mg tablet 15 mg PO TID 09/07/23 09/28/23 Unknown History
omeprazole 20 mg tablet,delayed 40 mg PO DAILY 09/07/23 09/28/23 Unknown History
release
oxybutynin chloride 15 mg 30 mg PO DAILY 09/07/23 09/28/23 Unknown History
tablet,extended release 24 hr
oxycodone 20 mg tablet 20 mg PO DAILY 09/07/23 09/28/23 Unknown History
pregabalin 50 mg capsule 50 mg PO TID 09/07/23 09/28/23 Unknown History
testosterone cypionate 200 mg/mL 200 mg IM Q14D 09/07/23 09/28/23 Unknown History
intramuscular oil
guaifenesin 600 mg tablet, 600 mg PO Q4H PRN cough 09/28/23 09/28/23 Unknown History
extended release 12 hr
Review of Systems
-
Unable to Obtain full review of systems at this time due to: Acuity
History Source: Family, Transfer Record and Physician
All other systems: Negative unless noted
Vitals / Labs / Diagnostic Testing
Vital Signs
Temp Pulse Resp BP Pulse Ox
97.3 F 59 11 106/70 98
09/29/23 03:52 09/29/23 06:00 09/29/23 06:00 09/29/23 06:00 09/29/23 06:00
Laboratory Results
09/29/23
06:26
APTT 50.0 H
Diagnostic Testing:
Physical Exam
-
HEENT: Normocephalic, Anicteric and Moist Mucous Membranes
Cardiovascular: S1/S2, Regular Rhythm and Other (L BKA)
Respiratory: Clear and Non-Labored Respirations
GI: Flat, Tender and Other (wounds noted, ostomy with suprapubic tube, TTP, decreased overall BS)
Neurology: Awake, Alert, Oriented, AO x 3 and No Motor Deficits
Skin: Warm and Dry
General: Comfortable and Other (NAD)
Assessment
-
Patient is a 43-year-old male with previous history of necrotizing fasciitis status post resection, asthma, Crohn's disease with ischemic bowel status post colon resection with ileostomy, sacral decubitus wound, tracheostomy, bedbound for the last 6
months presenting to [facility] with mental status changes, abrupt onset. There was noted fever at home 103.6 Fahrenheit over the weekend which was treated and did not recur. On arrival to ER patient was notably hypotensive, reportedly in the
60s, placed on IV fluids. Given refractory shock, was admitted to ICU for pressor requirements.
Acute refractory septic shock requiring pressors
Stage IV decub with overlying necrotic tissue for OR today
Hypercalcemia
Hyponatremia
Bedbound x 6 mos, refusing turns
Profound weakness/deconditioning
Decrease PO intake with weight loss
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
Sacral decubitus wound recently maintained with wound vac
Chronic suprapubic catheter
Anterior abdominal wound
History of necrotizing fasciitis of abdomen status post urethral stricture with chronic suprapubic catheter
History of ischemic bowel status post bowel resection with ileostomy
Recent tracheostomy
Chronic pain secondary to wounds
Orthostatic hypotension on chronic midodrine
Asthma
Anxiety/depression
Chronic anemia
ETOH abuse
Plan
No current signs of metabolic encephalopathy or MS changes/following commands
Psychiatric history noted above, taking home meds which can be resumed
Chronic pain noted
Pain/sedation: PRN reviewed, dilaudid IV for turns/dressing changes
RASS goals: 0
Hemodynamically unstable, requiring pressors. Septic shock with potential cardiac EOD
Requiring pressors: levo @ 3, which has since been weaned off this AM
Cardiac history reviewed--orthostatic hypotension, on midodrine/resume this
Awaiting past records for ECHO
Oxygen needs: currently on room air/tolerating
Prior history of lung disease: asthma, resume inhaler PRN, not symptomatic from that standpoint
Supplemental O2 as indicated to maintain sats > 89%
CXR/CT reviewed indicating
NPO, resume diet when able
Help Desk Manager recommendations for poor PO intake
Aspiration precautions, HOB > 30 degrees
Speech therapy eval can be considered if at elevated risk
GI prophylaxis if indicated for mechanical ventilation >48 hours, prior history of GERD, stress ulcer formation in the critically ill
Creat at baseline, no history of renal disease
Void trials
Follow urine output, critical I/Os
Replete electrolytes as needed
Uro c/s for SPC
Fever and increased WBC on presentation, suspect underlying sacral wound source
For OR today for sacral wound
Started on empiric antibiotics
Cultures sent/pending
Follow fever trend, WBC count
Lactate not elevated on admission, <2
CBC stable, no signs of bleeding or coagulopathy.
DVT prophylaxis as assessed based on risk, including mechanical SCDs
Can transfuse if indicated for Hb <7, plt < 10
INR WNL
No prior h/o diabetes or thyroid disease
Monitor accuchecks PRN/SS coverage if needed
We will follow
Diagnostic Data
Chest X-Ray: 09/28/23 No acute cardiopulmonary process.
CT Scan:
Echo:
PFT's:
Reports and relevant images were personally reviewed.
-----
Critical Care time 65 mins -- The patient is admitted for acute critical illness for the treatment of vital organ failure and/or prevention of further life-threatening conditions. Total care includes time spent in review of history, physical exam,
medications, hemodynamic/ventilator parameters, laboratory data, imaging and discussion with house staff, pharmacy, respiratory therapy, c 40a crew chief, and nursing.
[2023-09-29 07:13] LABS: INR 1.42; PT 17.2 Sec (11.4-14.6)
[2023-09-29 07:17] LABS: ALT (SGPT) 32 U/L (0-50); AST (SGOT) 21 U/L (17-59); Albumin 2.3 g/dl (3.5-5.0); Alkaline Phosphatase 435 U/L (38-126); Blood Urea Nitrogen 19 mg/dl (9-20); Calcium 10.1 mg/dl (8.4-10.2); Carbon Dioxide 21 mmol/L (22-30); Chloride 107 mmol/L (98-107); Estimated Creatinine Clearance 70 ml/min; Glucose 118 mg/dl (70-99); Sodium 133 mmol/L (135-145); Total Bilirubin 0.3 mg/dl (0.2-1.3); Total Protein 6.2 g/dl (6.3-8.2); eGFR > 60.00
--- NOTE | 2023-09-29 07:54 | CON.GS ---
Addendum entered and electronically signed by Kenrick Scruggs MD 09/30/23 07:20:
Stage IV sacral decubitus ulcer present on admission
Original Note:
Medical History
-
Chief Complaint: Altered mental status
History of Present Illness:
Patient is a 43 yo M with a PMH notable for anxiety/depression, asthma, chronic pain, s/p L BKA, necrotizing fasciitis of the abdominal wall s/p multiple excisional operations and SP tube for approximately 8 years ago, s/p ventral hernia, and recent
admission to [facility] in 05/2023 for ischemic bowel s/p partial colectomy with ileostomy, feeding tube subsequently removed, and tracheostomy subsequently decannulated. He has also had chronic issues with a sacral decubitus ulcer and has
had multiple debridement procedures performed mostly in the [facility]. He was admitted to overnight due to issues with hypotension and altered mental status. He complains of back pain and sacral pain. No acute worsening of the
symptoms. No reports of fevers or chills. He denies any worsening drainage or pain overlying his sacrum. [facility] in a [facility], though he reports living by himself.
Past Medical History
Past Medical History: Psychiatric (Anxiety/depression) and Other (Chronic pain)
Past Surgical History: Bowel Resection (Colectomy with ileostomy), Hernia Repair, Urological (SP tube) and Other (Multiple abdominal and sacral debridement procedures)
Social History
Tobacco: Non-Smoker
Alcohol: Former
Drug: None
Family History
Family History: Reviewed & Not Pertinent
Allergies / Home Medications
Allergy/AdvReac Type Severity Reaction Status Date / Time
No Known Allergies Allergy Verified 09/28/23 18:47
Medication Instructions Recorded Confirmed Type
acetaminophen 325 mg tablet 650 mg PO Q6H PRN mild 08/12/23 09/28/23 History
pain/temp>100.4
fluticasone propionate 50 1 spray intranasal DAILY 08/12/23 09/28/23 History
mcg/actuation nasal
spray,suspension
magnesium hydroxide 400 mg/5 mL 30 ml PO HS PRN if no bm x 3 days 08/12/23 09/28/23 History
oral suspension (Milk of Magnesia)
multivitamin 1 tab PO DAILY 08/12/23 09/28/23 History
ondansetron HCl 8 mg tablet 8 mg PO Q12H PRN nausea/vomiting 08/12/23 09/28/23 History
oxycodone 20 mg tablet 20 mg PO Q4H PRN severe pain 08/12/23 09/28/23 History
quetiapine 200 mg tablet 200 mg PO HS 08/12/23 09/28/23 History
quetiapine 50 mg tablet 50 mg PO DAILY 08/12/23 09/28/23 History
acetaminophen 500 mg tablet 1,000 mg PO Q6H PRN mild pain 09/07/23 09/28/23 History
acetaminophen 650 mg rectal 650 mg NE Q4H PRN mild 09/07/23 09/28/23 History
suppository pain/temp>100
albuterol sulfate 90 mcg/actuation 2 puff inhalation R Q4 PRN 09/07/23 09/28/23 History
aerosol inhaler sob/wheezing
amitriptyline 100 mg tablet 100 mg PO BID 09/07/23 09/28/23 History
bisacodyl 10 mg rectal suppository 10 mg NE DAILY PRN if no results 09/07/23 09/28/23 History
(Dulcolax (bisacodyl)) for MOM
bupropion HCl 150 mg 24 hr tablet, 150 mg PO DAILY 09/07/23 09/28/23 History
extended release
chlorhexidine gluconate 0.12 % 15 ml PO BID 09/07/23 09/28/23 History
mouthwash
fluticasone propionate 115 2 puff inhalation R BID 09/07/23 09/28/23 History
mcg-salmeterol 21 mcg/actuation
HFA inhaler (Advair HFA)
loperamide 2 mg tablet 2 mg PO Q6H PRN diarrhea 09/07/23 09/28/23 History
methocarbamol 500 mg tablet 500 mg PO TID 09/07/23 09/28/23 History
miconazole nitrate 2 % topical 1 applic topical BID 09/07/23 09/28/23 History
cream
midodrine 10 mg tablet 15 mg PO TID 09/07/23 09/28/23 History
omeprazole 20 mg tablet,delayed 40 mg PO DAILY 09/07/23 09/28/23 History
release
oxybutynin chloride 15 mg 30 mg PO DAILY 09/07/23 09/28/23 History
tablet,extended release 24 hr
oxycodone 20 mg tablet 20 mg PO DAILY 09/07/23 09/28/23 History
pregabalin 50 mg capsule 50 mg PO TID 09/07/23 09/28/23 History
testosterone cypionate 200 mg/mL 200 mg IM Q14D 09/07/23 09/28/23 History
intramuscular oil
guaifenesin 600 mg tablet, 600 mg PO Q4H PRN cough 09/28/23 09/28/23 History
extended release 12 hr
Review of Systems
-
A 10 point review of systems was completed, and was negative except as per HPI.
Physical Exam
Vital Signs
Temp Pulse Resp BP Pulse Ox
95.5 F L 59 11 106/70 98
09/29/23 07:35 09/29/23 06:00 09/29/23 06:00 09/29/23 06:00 09/29/23 06:00
09/28/23 09/29/23 09/30/23
06:59 06:59 06:59
Actual Weight 77.8 kg
Body Mass Index (BMI) 26.9
Lab Results
09/29/23 06:26
09/29/23 06:26
WBC 12.6 10^3/uL (4.8-10.8) H 09/29/23 06:
Hgb 8.3 g/dL (13.0-18.0) L 09/29/23:
Hct 27.9 % (39.0-52.0) L 09/29/23 06:
Plt Count 400 10^3/uL (130-400) 09/29/23 06:
Abs Immat Gran (auto) 0.2 10^3/uL (0-0.05) H 09/29/23:
Neutrophils % 66.1 % (42.2-75.2) 09/29/23:
Physical Exam
General: Well Developed, Well Nourished and No Apparent Distress
HEENT: Normocephalic, Anicteric and Tracheotomy (Site well healed)
Respiratory: Non Labored Respirations
Cardiac: Regular Rhythm
GI: Soft, Non Tender, Non Distended, Incisions (Wide shallow midline wound with healthy granulation tissue, ilseotomy PPV with bilious output, prior G-tube site well healed) and Obese
Rectal: Other (Large sacral decubitus ulcer at least 15 x 15 cm, difficult to fully stage (III vs. IV), necrotic skin, infected soft tissue, mild purulent drainage, well opened and drained, no surrounding erythema, pain with exam)
Genito-urinary: Other (SP tube with clear urine, no purulent drainage around catheter)
Skin: Warm and Dry
Data Reviewed
-
Radiology: Image Personally Visualized and interpreted
Labs: Labs Reviewed by me
Old Records: Reviewed
Assessment / Plan
-
Patient is a 43 yo M p/w altered mental status. Difficult to tell the exact cause, possibly a mild sepsis related to his sacral decubitus ulcer, more likely related to his chronic pain medications and hypotension.
Found to have a chronic and large stage III v. IV decubitus ulcer with evidence of necrotic and infected tissue. The natural history and pathophysiology of decubitus ulcers was briefly reviewed. Given the presence of infected and necrotic tissue
recommend operative debridement. Patient unable to tolerate bedside debridement giving pain needs and size of wound.
Plan for EUA and excisional debridement of a sacral decubitus ulcer. The procedure itself, as well as the risks, benefits, and alternatives was discussed. Specifically, we discussed the risks of bleeding, infection, injury to surrounding
structures (muscle, nerves), need for further debridement and drainage procedures, and a chronic wound that may not heal. We discussed the importance of plastic surgery evaluation for consideration of a skin flap for best chances at ultimate
healing. All questions answered. Consent signed.
-- EUA and excisional debridement of a sacral decubitus ulcer
-- NPO, IVF
-- Abx: Vancomycin and Zosyn
--- NOTE | 2023-09-29 08:00 | PTCARENOTE ---
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 patient AAOx2, confused on time. patient is yelling out, doesn't remember why he was brought to hospital. patient is able to be reoriented to situation. He is in a sinus rhythm on monitor, on levo gtt at
3mcg/min infusing through 20 in right AC. Patient is on room air, 97% lungs clear, dry non productive cough at times. Patient has suprapubic catheter and ileostomy. Multiple wounds to be documented with WOC. Left BKA. Will review orders.
Lambour in to assess patient.
[2023-09-29] MEDS: NSS 1000 IV ×3 (08:09→23:06)
[2023-09-29] MEDS: ProAmatine 15 MG PO ×3 (08:10→17:41)
[2023-09-29] MEDS: ANTIFUNGAL CLEAR 1 APPLIC TOPICAL ×2 (08:10→21:09)
[2023-09-29] MEDS: THERAGRAN 1 TABLET PO (08:11)
[2023-09-29] MEDS: DITROPAN 5 MG PO ×4 (08:11→21:10)
[2023-09-29] MEDS: HEPARIN 5000 UNITS SC (08:11)
[2023-09-29] MEDS: WELLBUTRIN XL (24 hour extended release) 150 MG PO (08:11)
[2023-09-29] MEDS: LYRICA 50 MG PO ×4 (08:11→21:11)
[2023-09-29] MEDS: PROTONIX 40 MG PO (08:11)
[2023-09-29] MEDS: ELAVIL 100 MG PO ×2 (08:11→21:09)
[2023-09-29] MEDS: ROXICODONE 20 MG PO ×3 (08:11→18:17)
--- NOTE | 2023-09-29 08:20 | PTCARENOTE ---
Consent signed for debridement by Dr. Scruggs. Dr. Zapata in to also assess patient. Will try to coordinate suprapubic catheter exchange in OR.
[2023-09-29] MEDS: ADVAIR HFA 115/21 MCG INHALER 2 PUFF INH ×2 (08:31→20:41)
[2023-09-29] MEDS: ProAIR HFA INHALER 2 PUFF INH (08:41)
--- NOTE | 2023-09-29 10:50 | W.PN.HOSP.TC ---
Today's Communication/Plan
-
IV antibiotics pending cultures
Monitor for recurrent hypotension
Excisional debridement of sacral wound
Urology consultation for suprapubic cath replacement
Total Critical Care Time_55____ minutes. I was immediately available to the patient and staff. I personally examined, reviewed labs, diagnostic images/reports, interpretations, treatment plans, discussed patient care with other providers and
family or caregivers (if patient is unable to make decisions), entered orders as appropriate and documented the medical record.
Assessment / Plan
Assessment / Plan
Impression:
Presentation with hypotension and altered mental status
Toxic metabolic encephalopathy secondary to hypotension/sepsis.
Sepsis with septic shock.
-Possible sources infected stage IV sacral decubital wound, UTI (complicated UTI with suprapubic tube in place)
Acute on chronic hypotension
Hypercalcemia
Conditions prior to admission:
Recent hospitalization at [facility].
� Complicated bariatric surgery.
Ischemic bowel followed by total colectomy/ileostomy.
Prolonged metabolic encephalopathy
Prolonged ventilatory dependent respiratory failure status post tracheostomy, currently decannulated.
Status post PEG tube removed on July 2023.
History of necrotizing fasciitis 2012
Ureteral stricture with chronic suprapubic catheter in place.
Left BKA
Chronic pain syndrome with narcotic dependence
Chronic hypotension requiring midodrine
Asthma without exacerbation
Anemia of chronic disease
Anxiety/depression.
Recovered alcoholic sober for 10 years
Severe malnutrition with reported 90 pound weight loss over the last 3 months
Impression:
Toxic metabolic encephalopathy reported lethargic open presentation currently improved and mental status back to baseline
Sepsis (leukocytosis, hypotension, hypothermia)
Septic shock
Possible source: Stage IV sacral decubital wound, versus complicated UTI with suprapubic tube in place, latest reported pulled at the nursing facility.
Surgery consultation with plan for excisional debridement of sacral wound
Follow blood cultures/urine cultures/wound cultures
Empiric antibiotics currently on vancomycin and meropenem following culture data.
Urology consultation for suprapubic tube check/replacement
Septic shock with acute on chronic hypotension.
Likely combination of above as well as narcotic related and low volume status.
Off Levophed as of 3/0 5 AM.
Continue midodrine
Continue isotonic solution
Follow hemodynamics and renal function closely.
Anemia of chronic disease.
Hemoglobin 10�8 with dilution
No evidence of active bleeding.
Check iron stores, B12.
Monitor hemoglobin closely
Chronic pain syndrome requiring narcotics
Outpatient regimen including short acting oxycodone, Lyrica, methocarbamol
Continue IV hydromorphone for breakthrough pain
Reassess with consideration for reduction of long-acting narcotics along with short acting for breakthrough pain. Consider adjunctive therapy with gabapentin
Severe malnutrition.
Nutritional consult.
Anxiety/depression
Continue quetiapine
Deconditioning
Physical therapy assessment once hemodynamically stable
Full code
DVT prophylaxis subcu heparin.
Anticipated Discharge: > 48 hours
Subjective/Interval History
-
Date of Service: September 29, 2023
Objective Data
-
Labs:
Laboratory Results
09/29/23
06:26
WBC 12.6 H
Hgb 8.3 L
Hct 27.9 L
Plt Count 400
PT 17.2 H
INR 1.42
APTT 50.0 H
Sodium 133 L
Potassium 4.0
Chloride 107
Carbon Dioxide 21 L
BUN 19
Creatinine 1.3
Glucose 118 H
Calcium 10.1
Total Bilirubin 0.3
AST 21
ALT 32
Alkaline Phosphatase 435 H
Vital Signs:
Vital Signs
Temp Pulse Resp BP Pulse Ox
95.5 F L 72 14 94/61 99
09/29/23 07:35 09/29/23 10:00 09/29/23 10:00 09/29/23 10:00 09/29/23 10:05
I&O
09/28/23 09/29/23 09/30/23
06:59 06:59 06:59
Intake Total 67.8 / 199.1 491.3 / 491.3
Output Total 360 / 385 50 / 50
Balance -292.2 / -185.9 441.3 / 441.3
Physical Exam
-
General: Well Developed and No Apparent Distress
HEENT: Normocephalic, Atraumatic and Moist Mucous Membranes
Respiratory: Clear to Auscultation
Cardiac: Regular Rhythm and S1/S2; Negative Murmur, Rub or Gallop
GI: Soft, Nontender, Nondistended, Normal Bowel Sounds and Ostomy (Right lower quadrant ileostomy); Negative Organomegaly
Rectal: Deferred by Provider
Genito-urinary: Other (Suprapubic tube)
Musculoskeletal: No Clubbing, No Cyanosis and No Edema
Skin: Negative Rash
Neuro: Awake, Alert, Oriented, AO x 3 and Nonfocal/Grossly Intact
--- NOTE | 2023-09-29 11:27 | PHA.VAN.FU ---
Vancomycin Assessment / Plan
- Assessment
Renal Function: Stable
WBC's are: Stable
Concomitant Antimicrobials: meropenem
- Dosing Plan
Continue: Vanc 750mg Q12H
- Monitoring Plan
Trough Level: 09/29 05:30 - will obtain trough to ensure clearing appr with [facility]
- Follow Up
Pharmacy will continue to follow.
Vancomycin Follow UP
- -
Patient Age: 43
Patient Sex: Male
Vancomycin Day #: 2
Indication: Skin And Soft Tissue
Requesting Provider: Dr. Gomez
Pertinent Antimicrobial Allergies:
NKDA
Height / Weight:
Height 5 ft 7 in
Actual Weight 77.8 kg
Pertinent Past Medical History: L. BKA
- Vital Signs / Lab Results
Temp Pulse Resp BP Pulse Ox
95.5 F L 72 14 94/61 99
09/29/23 07:35 09/29/23 10:00 09/29/23 10:00 09/29/23 10:00 09/29/23 10:05
Lab Results - Hematology
09/28/23 09/29/23
18:39 06:26
WBC 13.3 H 12.6 H
Lab Results - Chemistry
09/28/23 09/28/23 09/28/23
18:39 19:17 20:25
BUN Cancelled Cancelled 25 H
Creatinine Cancelled Cancelled 1.3
Estimated Creat Clear Cancelled Cancelled
Albumin Cancelled Cancelled 3.0 L
09/29/23
06:26
BUN 19
Creatinine 1.3
Estimated Creat Clear 70
Albumin 2.3 L
09/28/23 09/28/23
18:39 22:45
Lactic Acid 0.9 Cancelled
Lab Results - Urine
09/28/23
19:50
Urine Nitrite (Reflex) Negative
Leukocyte Esterase Rfl 2+ A
[2023-09-29] MEDS: PERIDEX 0.12% ORAL RINSE PO ×2 (11:32→21:11)
--- NOTE | 2023-09-29 12:00 | PTCARENOTE ---
no change in patient's assessment. awaiting call back from OR for patient's pickle pumper.
--- NOTE | 2023-09-29 12:27 | W.PN.URO.CBU ---
Today's Communication / Plan
-
sp tube today or wed
Assessment / Plan
-
sp tube no obvious infection but by history at least colonized will try and change sp tube under anesthesi during wound debridememt but if cannot coordinate will do at bedside
Diagnosis
-
Date of Service: September 29, 2023
-
Patient Diagnosis:posible urosepsis in t wth sp tube but who aloso has infected appearing decubiti icu requets sp tube change
Post Op Day:
Subjective
-
no gu sxs other rather usual discfomfort of 8 fr sp tube
Objective
-
Vital Signs
Temp Pulse Resp BP Pulse Ox
95.5 F L 64 14 102/58 99
09/29/23 07:35 09/29/23 12:13 09/29/23 10:00 09/29/23 12:13 09/29/23 10:05
Intake and Output
09/28/23 09/29/23 09/30/23
06:59 06:59 06:59
Intake Total 67.8 / 199.1 753.8 / 753.8
Output Total 360 / 385 50 / 50
Balance -292.2 / -185.9 703.8 / 703.8
Intake:
IV fluids (Total) 67.8 / 199.1 753.8 / 753.8
Nss 1,000 ml @ 120 mls/hr IV . 0 / 120 720 / 720
Q8H20M [facility] Rx#:[id number]
levophed 67.8 / 79.1 33.8 / 33.8
Output:
Liquid stool amount 100 / 100
Ileostomy 100 / 100
Urine, Simms 50 / 50
Suprapubic output 260 / 260
Laboratory Results
09/29/23 06:26
09/29/23 06:26
Review of Systems
-
Abdomen/GI: Abdominal Pain
: Difficulty Voiding
Physical Exam
-
General - well developed, well nourished, no acute distress
Chest - clear bilaterally
Abdomen - soft, non-tender, positive bowel sounds, no CVAT, no incisional pain or distentionha s sp tube and clean stomas
Genitalia -
Rectal - normal
Skin - warm & dry with no rash
Neuro - AOx3, no motor deficits
Extremities - no clubbing, no cyanosis, no edema
Incision - clean, dry
Dressing - clean, dry, intact
Care Review
Data Reviewed
Discussed with: Nursing and Other (general surgery)
[2023-09-29 12:35] LABS: Iron 41 ug/dl (49-181)
--- NOTE | 2023-09-29 12:42 | W.SUR.PREOP ---
Pre-Operative Surgical Note
-
I have examined this patient prior to the performance of the scheduled procedure.
The patient's condition is unchanged from the time of the current History and
Physical and the patient is able to undergo the scheduled procedure.
[2023-09-29 12:45] LABS: Percent Saturation 23 % (20-50); Total Iron Binding Capacity 174 ug/dl (261-462)
[2023-09-29 12:58] LABS: TSH 1.16 uIU/ml (0.47-4.68)
[2023-09-29 13:17] LABS: Vitamin B12 723 pg/ml (239-931)
[2023-09-29] MEDS: DILAUDID 0.5 MG IV (14:34)
--- NOTE | 2023-09-29 14:54 | WOUNDNOTE ---
ABDOMEN AND ILEOSTOMY
--- NOTE | 2023-09-29 14:56 | WOUNDNOTE ---
WON RN note: Patient admitted with acute UTI, altered mental status and hypotension.
See H&P for complete history. Came from [facility].
PMH: Alcohol abuse, Crohns disease, bowel obstruction-colostomy, feeding tube, lukasz-rectal abscess 2007, hernia surgery resulting in complications-necrotic bowel(surgery at [facility] 05/2023) with ileostomy. L BKA, Large stage 4 sacral ulcer, non
healing abdominal surgical wound and suprapubic catheter.
Wound Location and type/assessment: Patient admitted with: Stage 4 sacral PI for OR debridement today, reviewed Dr. Scruggs's note. Abdomen with large irregular shaped slow to heal surgical site, pink at base. Ileostomy RUQ connected to SBD via
[employer] one piece appliance. Nurse states was placed on here by ICU nurses yesterday. No leakage noted. Suprapubic catheter with foul smelling drainage around tube per nurse. L ear rim with what appears to be a healing stage 2 vs unstageable PI. L
knee with abrasion, intact dry scab. R heel intact skin is very dry. Difficult to get any questions answered by patient as he is complaining of pain all over. Nurse medicated for pain.
Appetite: NPO for OR.
Pressure redistribution devices in place: Centrella max air bed. Patient needs to stay on air mattress. Pillow under R leg.
Plan: Changed all dressings. Xeroform and abd pads to abdomen. Saline WTD to sacrum. Foams to L ear rim, L knee and R heel. Will follow along peripherally with surgery and assist as needed.
Will confirm orders with hospitalist and updated nurse Malinda Pollard.
Note to case management of equipment requested for discharge: Air mattress and offloading cushion.
Recommend follow up at wound care center upon discharge.
--- NOTE | 2023-09-29 15:28 | CM ---
CM following re: discharge planning.
Discussed in Rounds, reviewed pt's chart, met with pt and pt's parents at bedside. Pt's parents participated in Rounds meeting. Per Rounds meeting to OR today for excisional debridement of sacral wound
Pt is a 43 year old male, admitted with primary dx of Septic shock. Per parents pt was at [facility], went to [facility] and was placed to [facility] for a short term rehab. Pt's parents expressed their concerns that
jail care does not equipped to care for their son.
CM spoke to [facility] SNF liaison and she confirmed that pt is not a bed hold, was there for a short term rehab and pt will be accepted back when medically stable.
D/C plan: uncertain at this time. Pt's parents feel that pt needs higher level of care than SNF.
CM will follow with discharge plan updates as hospitalization progresses.
--- NOTE | 2023-09-29 15:45 | PTCARENOTE ---
OR and FOUNDER / CEO Took patient to OR for debridement.
--- NOTE | 2023-09-29 16:06 | W.IMMPOSTOP ---
Surgical Immed Post Op Note
-
Primary Surgeon: tod
Assisting Surgeon:
Pre-op Diagnosis: uti urinary retention
Post-op Diagnosis:
same
Procedure Performed: change suprapubic tube
Anesthesia Type: general
Specimen / Cultures: 0
Estimated Blood Loss: 1cc
Complications: 0
Operative Findings: nl tract rnmoved existing colonized tube replaced in steile fashion new 18 fr with 10cc in balloon
--- NOTE | 2023-09-29 16:52 | W.IMMPOSTOP ---
Addendum entered and electronically signed by Kenrick Scruggs MD 09/29/23 17:04:
[facility]#[id number]
Original Note:
Surgical Immed Post Op Note
-
Primary Surgeon: Sheba
Assisting Surgeon: None
Pre-op Diagnosis: Sacral decubitus ulcer
Post-op Diagnosis: Sacral decubitus ulcer
Procedure Performed: Excisional debridement of sacral decubitus ulcer in preparation for skin graft
Anesthesia Type: General
Specimen / Cultures:
1. Wound culture
Estimated Blood Loss: 3 cc
Complications: None
Operative Findings:
1. Stage IV decubitus ulcer with exposed coccyx, wound measurements 20 x 15 cm
2. Sharp excisional debridement of all necrotic and infected skin and soft tissue, minimal purulence, cultures obtained
[2023-09-29] MEDS: DILAUDID 1 MG IV ×2 (17:29→21:25)
--- NOTE | 2023-09-29 20:45 | PTCARENOTE ---
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 SR HR 80s. R PICC placed by IV team, CXR done, awaiting placement confirmation. Levo gtt/NSS infusing per work list. wound dressings CDI t/o. pt refusing to lay
on side, wants to be flat in bed as it eases pain of sacral wound. POC discussed, call ash with patient.
[2023-09-29] MEDS: LEVOPHED 250 IV (21:08)
[2023-09-29] MEDS: SEROQUEL 200 MG PO (21:11)
[2023-09-29] MEDS: MUCINEX 1200 MG PO (21:11)
[2023-09-29] MEDS: TYLENOL 650 MG PO (21:12)
[2023-09-30] VITALS (45 sets, daily range): BP systolic 79–124; BP diastolic 41–83; BMI 26.8
[2023-09-30] MEDS: STERILE WATER FOR INJECTION 10 ML IV ×4 (01:04→19:47)
[2023-09-30] MEDS: MERREM 500 MG IV ×4 (01:04→19:47)
[2023-09-30] MEDS: HEPARIN 5000 UNITS SC ×3 (01:04→15:54)
[2023-09-30] MEDS: NSS 1000 IV ×2 (05:41→20:27)
[2023-09-30] MEDS: ROXICODONE 20 MG PO ×4 (05:41→20:02)
[2023-09-30] MEDS: DILAUDID 1 MG IV ×3 (05:59→13:14)
[2023-09-30 06:15] LABS: Hematocrit 28.3 % (39.0-52.0); Hemoglobin 8.4 g/dL (13.0-18.0); Mean Corp Hgb Conc. 29.7 g/dL (33.0-37.0); Mean Corpuscular Hgb 26.9 pg (27.0-31.0); Mean Corpuscular Volume 90.7 fL (80.0-94.0); Mean Platelet Volume 8.6 fL (7.4-10.4); Platelet Count 402 10^3/uL (130-400); Red Blood Cell Count 3.12 10^6/uL (4.70-6.10); Red Cell Dist. Width 15.1 % (11.5-14.5); White Blood Cell Count 9.4 10^3/uL (4.8-10.8)
[2023-09-30 06:40] LABS: Blood Urea Nitrogen 12 mg/dl (9-20); Calcium 9.7 mg/dl (8.4-10.2); Carbon Dioxide 20 mmol/L (22-30); Chloride 111 mmol/L (98-107); Estimated Creatinine Clearance 83 ml/min; Glucose 132 mg/dl (70-99); Magnesium 1.9 mg/dl (1.6-2.3); Potassium 4.5 mmol/L (3.5-5.1); Sodium 136 mmol/L (135-145); eGFR > 60.00
[2023-09-30 06:54] LABS: Vancomycin Trough 27.9 ug/ml (5-20)
--- NOTE | 2023-09-30 07:13 | W.PN.INTV ---
Today's Communication / Plan
Recommendations
Remains on low dose pressor, trial IVF bolus
Attempt to wean pressors
Refusing turns, local wound care
Pain control
Consider ID consult, cultures reviewed
PT/OT
Assessment
-
Patient is a 43-year-old male with previous history of necrotizing fasciitis status post resection, asthma, Crohn's disease with ischemic bowel status post colon resection with ileostomy, sacral decubitus wound, tracheostomy, bedbound for the last 6
months presenting to [facility] with mental status changes, abrupt onset. There was noted fever at home 103.6 Fahrenheit over the weekend which was treated and did not recur. On arrival to ER patient was notably hypotensive, reportedly in the
60s, placed on IV fluids. Given refractory shock, was admitted to ICU for pressor requirements.
Acute refractory septic shock requiring pressors
Stage IV decub with overlying necrotic tissue for OR today
Hypercalcemia
Hyponatremia
Bedbound x 6 mos, refusing turns
Profound weakness/deconditioning
Decrease PO intake with weight loss
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
Sacral decubitus wound s/p debridement 08/25/23 maintained with wound vac
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
Vertical Sleeve Gastrectomy in 08/2017
Incarcerated hernia s/p ex lap and hernia repair with attempt to convert VSG to BPD/DS which was aborted due to short small bowel
Resultant poor wound closure/Anterior abdominal wound s/p muscle flap/mesh closure c/b hematoma requiring evac
History of subtotal colectomy 05/15/23 for colonic necrosis and perforation causing fecal peritonitis
Recent tracheostomy/J tube, reversed
Chronic pain secondary to wounds
Orthostatic hypotension on chronic midodrine
Asthma
Anxiety/depression
Chronic anemia
ETOH abuse
Plan
No current signs of metabolic encephalopathy or MS changes/following commands
Psychiatric history noted above, taking home meds which can be resumed
Chronic pain noted
Pain/sedation: PRN reviewed, dilaudid IV for turns/dressing changes
RASS goals: 0
Hemodynamically unstable, requiring pressors. Septic shock with potential cardiac EOD
Requiring pressors: levo @ 6, which has since been weaned off this AM
Cardiac history reviewed--orthostatic hypotension, on midodrine/resumed on this
Normal function on prior ECHO
Trial of IVF bolus with pressor weaning
Oxygen needs: currently on room air/tolerating
Prior history of lung disease: asthma, resume inhaler PRN, not symptomatic from that standpoint
Supplemental O2 as indicated to maintain sats > 89%
CXR/CT reviewed indicating NAD
Diet resumed, intake has been poor
Filler Sifter Helper recommendations for poor PO intake
Aspiration precautions, HOB > 30 degrees
Speech therapy eval can be considered if at elevated risk
GI prophylaxis if indicated for mechanical ventilation >48 hours, prior history of GERD, stress ulcer formation in the critically ill
Creat at baseline, no history of renal disease
Void trials
Follow urine output, critical I/Os
Replete electrolytes as needed
Uro c/s for SPC
Fever and increased WBC on presentation, suspect underlying sacral wound source
s/p OR sacral wound debridement 09/29/23
Started on empiric antibiotics
Cultures reviewed
Tissue culture + proteus
Urine culture + pseudomonas/GNB
Consider ID consult
Follow fever trend, WBC count
Lactate not elevated on admission, <2
CBC stable, no signs of bleeding or coagulopathy.
DVT prophylaxis as assessed based on risk, including mechanical SCDs
Can transfuse if indicated for Hb <7, plt < 10
INR WNL
No prior h/o diabetes or thyroid disease
Monitor accuchecks PRN/SS coverage if needed
Extensive review of [facility] records:
Plan on 05/14/23 was for elective repair of incarcerated incisional hernia repair.� He underwent ex lap with ORION, repair of hernia, plan to convert VSG to BPD/DS which was aborted due to short small bowel.� He had abd wall reconstruction with muscle
flaps and mesh by Plastics. Decompensated post op with hypotension, lactic acidosis, JAIR, coagulopathy (Elev INR), severe metabolic acidosis s/p intubation.� CT showing abdominal wall hematoma, RLL PNA. Taken back for re-exploration and evacuation
of hematoma, with subtotal colectomy 05/15/23 for colonic necrosis and perforation causing fecal peritonitis. On CRRT while in ICU, developed rapid AFib as well
Taken back to OR 05/27 and 05/28 for bleeding, ORION and placement of J tube, attempted ileostomy--eventual placement wtih closure 05/30/23. IR drain placed 06/08 for LLQ collection
Developed pneumomediastinum. Returned to OR on 07/09/23 for RLQ flap debridement. Pressure wound noted in coccyx with necrosis was noted as well during hospitalization.
Readmitted to [facility] 08/18/23-08/27/23 for hypotension, acute electrolyte imbalances, rapid weight loss (376lbs in 04/2023 down to 278 on this admission), decreased PO intake.� He is noted to have large unstageable wound, abd wound appeared clean/intact
with wound vac. There was a plan to debride sacral wound on 08/24, underwent procedure 08/25 noted to be stage 4, then discharged back to [place].
Diagnostic Data
Chest X-Ray: 09/28/23 No acute cardiopulmonary process.
CT Scan:
ECHO 04/2023 @[facility]: mildly decreased LV function, EF 40-45%, grade I DD.� Mildly decreased RV function, mild TR PAP n/a.
PFT's:
Reports and relevant images were personally reviewed.
-----
Critical Care time 35 mins -- The patient is admitted for acute critical illness for the treatment of vital organ failure and/or prevention of further life-threatening conditions. Total care includes time spent in review of history, physical exam,
medications, hemodynamic/ventilator parameters, laboratory data, imaging and discussion with house staff, pharmacy, respiratory therapy, program manager, and nursing.
Subjective Dataa
Subjective Data
Date of Service:
Date of Service: September 30, 2023
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
Subjective:
doing well overnight
still remains on levo@6
refusing turns
Objective Data
Data Reviewed
Vital Signs / I&O / Oxygen:
Vital Signs
Temp Pulse Resp BP Pulse Ox
96.6 F L 63 14 89/52 94
09/29/23 23:25 09/30/23 07:00 09/30/23 07:00 09/30/23 05:30 09/30/23 07:00
Intake and Output
09/29/23 09/30/23 10/01/23
06:59 06:59 06:59
Intake Total 67.8 / 199.1 3153.8 / 3153.8
Output Total 360 / 385 1550 / 1550
Balance -292.2 / -185.9 1603.8 / 1603.8
SaO2 94
Physical Exam
General: Comfortable, Poor Appetite, Other (NAD, chronically ill appearing) and Other (deconditioned)
HEENT: Normocephalic, Anicteric and Moist Mucous Membranes
Cardiovascular: S1-S2 and Regular Rhythm
Respiratory: Clear and Non-Labored Respirations
GI: Soft, Non Distended, Tender and Other (suprapubic tube, ostomy noted, healing wound anteriorly noted/pink)
Neurology: Awake, Alert, Oriented, AO x 3, No Motor Deficits and Depressed (flat affect)
Skin: Warm, Dry and Other (wound on sacrum)
Labs/Micro/Reports
Lab Data
09/30/23 05:47
09/30/23 05:48
Laboratory Results
09/29/23
06:26
PT 17.2 H
INR 1.42
APTT 50.0 H
Microbiology
09/28/23 18:51 Blood/Venous Blood Culture - Preliminary
No Growth in 24 hours- Final report to follow
09/28/23 18:51 Blood/Venous Blood Culture - Preliminary
No Growth in 24 hours- Final report to follow
09/29/23 17:00 Other-Please specify - Other Gram Stain - Preliminary
09/29/23 17:00 Sacral Gram Stain - Preliminary
09/28/23 19:50 Urine Urine Culture - Preliminary
[2023-09-30] MEDS: LEVOPHED 250 IV (07:44)
[2023-09-30] MEDS: ELAVIL 100 MG PO ×2 (07:45→19:47)
[2023-09-30] MEDS: PROTONIX 40 MG PO (07:46)
[2023-09-30] MEDS: ProAmatine 15 MG PO ×3 (07:46→16:56)
[2023-09-30] MEDS: THERAGRAN 1 TABLET PO (07:47)
[2023-09-30] MEDS: PERIDEX 0.12% ORAL RINSE 15 ML PO ×2 (07:47→19:46)
[2023-09-30] MEDS: LYRICA 50 MG PO ×3 (07:47→19:46)
[2023-09-30] MEDS: SEROQUEL 50 MG PO (07:47)
[2023-09-30] MEDS: DITROPAN 5 MG PO ×4 (07:47→19:46)
[2023-09-30] MEDS: WELLBUTRIN XL (24 hour extended release) 150 MG PO (07:47)
[2023-09-30] MEDS: ANTIFUNGAL CLEAR 1 APPLIC TOPICAL ×2 (07:49→19:47)
[2023-09-30] MEDS: TYLENOL 650 MG PO (07:50)
--- NOTE | 2023-09-30 08:01 | PHA.VAN.FU ---
Vancomycin Assessment / Plan
- Assessment
Renal Function: SCR Decreasing
WBC's are: WNL
Concomitant Antimicrobials: meropenem
- Assessment - Trough Based Monitoring
Trough Value: 27.9
Level Today was: Appropriate (levels drawn after 3rd total dose, 2g load followed by 750mg x2 doses)
Level Comments: level drawn ~12H after previous dose of 750mg
Patient's estimated CrCl is likely overestimated and does not predict vanc clearance
- Dosing Plan
Adjust Regimen to: dosing by level
- Monitoring Plan
Random Level: 09/30 06
- Follow Up
Pharmacy will continue to follow.
Vancomycin Follow UP
- -
Patient Age: 43
Patient Sex: Male
Vancomycin Day #: 3
Indication: Skin And Soft Tissue
Requesting Provider: Dr. Gomez
Pertinent Antimicrobial Allergies:
NKDA
Height / Weight:
Height 5 ft 7 in
Actual Weight 77.5 kg
Pertinent Past Medical History: L. BKA
- Vital Signs / Lab Results
Temp Pulse Resp BP Pulse Ox
98.2 F 83 11 104/83 97
09/30/23 07:35 09/30/23 07:46 09/30/23 07:30 09/30/23 07:46 09/30/23 07:30
Lab Results - Hematology
09/28/23 09/29/23 09/30/23
18:39 06:26 05:47
WBC 13.3 H 12.6 H 9.4
Lab Results - Chemistry
09/28/23 09/28/23 09/28/23
18:39 19:17 20:25
BUN Cancelled Cancelled 25 H
Creatinine Cancelled Cancelled 1.3
Estimated Creat Clear Cancelled Cancelled
Albumin Cancelled Cancelled 3.0 L
09/29/23 09/30/23
06:26 05:48
BUN 19 12
Creatinine 1.3 1.1
Estimated Creat Clear 70 83
Albumin 2.3 L
09/28/23 09/28/23
18:39 22:45
Lactic Acid 0.9 Cancelled
Microbiology Results
09/28/23 18:51 Blood Culture - Preliminary
Blood/Venous No Growth in 24 hours- Final report to follow
09/28/23 18:51 Blood Culture - Preliminary
Blood/Venous No Growth in 24 hours- Final report to follow
09/29/23 17:00 Gram Stain - Preliminary
Other-Please specify - Other
09/29/23 17:00 Gram Stain - Preliminary
Sacral
09/28/23 19:50 Urine Culture - Preliminary
Urine
Therapeutic Drug Monitoring
Vancomycin Trough 27.9 ug/ml (5-20) H* 09/30/23 05:47
[2023-09-30] MEDS: VANCOCIN IV (08:10)
--- NOTE | 2023-09-30 08:10 | PTCARENOTE ---
recd pt, assessed. explained rationale for turning, repositioning, sitting up, declined at this time. took am meds easily with sips water, ordered and presently eating breakfast. bounding pulse RLE. abd dressing intact, call ash in reach.
levophed titration as per intervention.
[2023-09-30] MEDS: ADVAIR HFA 115/21 MCG INHALER 2 PUFF INH ×2 (08:22→21:02)
--- NOTE | 2023-09-30 09:11 | PTCARENOTE ---
declined repositioning at this time due to pain. ate small amount of breakfast, c/o 'exhausted'. Call ash in reach along with beverages. Warm blankets given. titrated back up on levophed despite midodrine dose given earlier. skin warm and dry,
rests when undisturbed.
--- NOTE | 2023-09-30 09:35 | PTCARENOTE ---
turned with assist, tolerated, positioned to L. wound RN arrived after turn, planning dressing change with surgeon in approx 1 hr, pt aware. Med as noted with oxycodone now, see MAR, and aware dilaudid can/will be given prior to wound care.
positioned as able to side with pillows.
--- NOTE | 2023-09-30 09:39 | W.PN.URO.CBU ---
Today's Communication / Plan
-
no gu changes
Assessment / Plan
-
sp tube no obvious infection but by history at least colonized fresh sp tube in good working order
Diagnosis
-
Date of Service: September 30, 2023
-
Patient Diagnosis:
Post Op Day:
Patient Diagnosis:posible urosepsis in t wth sp tube but who aloso has infected appearing decubiti icu requets sp tube change
Post Op Day:
Subjective
-
pain fron drcubiti sp tube no comlaints
Objective
-
Vital Signs
Temp Pulse Resp BP Pulse Ox
98.2 F 83 11 104/83 98
09/30/23 07:35 09/30/23 07:46 09/30/23 07:30 09/30/23 07:46 09/30/23 08:13
Intake and Output
09/29/23 09/30/23 10/01/23
06:59 06:59 06:59
Intake Total 67.8 / 199.1 3153.8 / 3296.3 780.0 / 780.0
Output Total 360 / 385 1550 / 1550
Balance -292.2 / -185.9 1603.8 / 1746.3 780.0 / 780.0
Intake:
Oral fluids 360 / 360
IV fluids (Total) 67.8 / 199.1 3003.8 / 3146.3 420.0 / 420.0
Nss 1,000 ml @ 120 mls/hr IV . 0 / 120 2640 / 2760 360 / 360
Q8H20M [facility] Rx#:[id number]
levophed 67.8 / 79.1 363.8 / 386.3 60.0 / 60.0
IV piggybacks 150 / 150
Output:
Liquid stool amount 100 / 100
Ileostomy 100 / 100
Urine, Simms 275 / 275
Suprapubic output 260 / 260 1275 / 1275
Laboratory Results
09/30/23 05:47
09/30/23 05:48
Review of Systems
-
: Difficulty Voiding
Physical Exam
-
General - well developed, well nourished, no acute distress
Chest - clear bilaterally
Abdomen - soft, non-tender, positive bowel sounds, no CVAT, no incisional pain or distention
Genitalia - normal
Rectal - normal
Skin - warm & dry with no rash
Neuro - AOx3, no motor deficits
Extremities - no clubbing, no cyanosis, no edema
Incision - clean, dry
Dressing - clean, dry, intact
Care Review
Data Reviewed
Discussed with: Nursing and Other (surgery)
--- NOTE | 2023-09-30 10:39 | W.PN.UPDATE ---
Update Note
Progress Note Update
Pt seen and evaluated at bedside. Dressing changed together with wound care team. Wound base clean and hemostatic, no further necrotic tissue or slough. No plan for further debridement at this time. Would cont with ocal wound care, offloading,
nutritional support. Pls call with ?s.
--- NOTE | 2023-09-30 10:47 | WOUNDNOTE ---
MARY RN NOTE: Followed up today with Dr. Awad who removed dressing. Premedicated for pain by nurse. Wound base much machine fur cleaner with exposed bone, no bleeding or odor. Plan is for saline WTD dressing daily as discussed with Dr. Walker, dressing applied. PCT
Liam assisted, repositioned patient onto L semi side lying position, pillow with air cushion on top under R leg. Checked other wounds and ileostomy, no changes in care. Father visiting patient post dressing change, answered all questions, support
and encouragement given to patient and father. Encouraged patient to increase protein in diet with meals. Pressure ulcer prevention measures reviewed. Instructed will have to limit time out of bed in future even with a cushion. Offloading air
mattress to continue during stay and when discharged. Will notify CM of need for both upon discharge. Recommend patient follow up with [facility] and most likely will need plastic surgeon down the line. Will follow as needed.
[2023-09-30] MEDS: NSS 250 IV (11:54)
--- NOTE | 2023-09-30 12:16 | CON.ID ---
Consultation
-
Date/Time Consultation Requested: 09/30/2023, 0936
Date/Time Consultation Performed: 09/30/2023, 1220
Requesting Provider: Dr. Kishore Peck
Performing Provider: Dr. Paula Reyna
Reason for Consultation: Large sacral wound
Chief Complaint / Past History
Chief Complaint
Low BP
History of Present Illness
I reviewed outside medical records. 43 year old male with hx Jn's gangrene s/p penectomy/orchiectomy, SPC placment 2012, hx gastric sleeve, hx ex-lap, incisional hernia repair with muscle flap complicated by hematoma, colon
nerosis/perforation/peritonitis s/p subtotal colectomy, followed by sigmoidectomy (04/2023), abdominal bleeding s/p ORION, J tube, ileosotmy (05/2023). Has abdominal wound. Developed sacral decubitus during hospitalization. Jul 2023 readmitted to
[facility] s/p I+D of stage IV sacral decubitus 08/25/23. Recent hospitalization at [facility] 09/08 with hypotension, rigors, abdominal wall erytehma. Cellulitis ruled out. Placed on cephalexin for UTI (of note Ucx +Pseudomonas). He
was discharged back to [facility]. Pt noted to have low BP with decreased MS and therefore sent to ED 3/. WBC 13.3, normal lactate, BP's 60's requiring levophed. Sacral decubitus noted to be necrotic and infected. 3/5 s/p OR debridement
of infected and necrotic tissue, coccyx bone exposed, SPC exchanged. Today, pt reports sacral pain. Otherwise, mental status has improved. Appetite fair. No N/V. No cough/SOB.
Past History
Additional Past Medical History:
DM, diet controlled
Asthma
HTN
depression
Bipolar I
hx necrotizing fasciitis s/p penectomy/orchiectomy 2012
chronic suprapubic catheter
hx Vertical sleeve gastrectomy 2017
Ex-lap, aborted duodenal switch short boer, s/p ORION, incarcerated incisional hernia repair (05/14/23) with muscle flap/mesh complicated by abd wall hematoma s/p re-op, subtotal colectomy (colon necrosis, perforation) 05/15/23.
Hemorrhage s/p ORION, J tube, ileostomy 05/2023
chronic stage 4 sacral decubitus, s/p I+D 08/25/23 at [facility]
Cholecystectomy
Hx Tracheostomy
left BKA
Allergy History:
No Known Allergies Allergy (Verified 09/28/23 18:47)
Medications Reviewed: Yes
Current Antibiotics:
Vancomycin d3
Meropenem d3
Social History
Tobacco: Non-Smoker
Alcohol: Former
Drug: None
Living: [facility]
Family History
Family History: Not Pertinent
Review of Systems
Review of Systems
General: Change in Appetite; Negative Chills
HEENT: Negative Sinus Problems, Headache or Pharyngitis
Respiratory: Negative Dyspnea or Cough
Gasteroenterology: Negative Nausea or Vomiting
Genital / Urological: Negative Flank Pain
Endocrine: Weakness
Skin / Hair / Nails: Negative Rash
Neurological: Negative Headache or Dizziness
All systems: All other systems were reviewed and were negative
Vital Signs
Temp Pulse Resp BP Pulse Ox
98.6 F 79 18 99/63 99
09/30/23 11:00 09/30/23 12:11 09/30/23 10:45 09/30/23 12:11 09/30/23 10:30
Selected Entries
09/29/23
23:25
Temp 96.6 F L
Physical Exam
Physical Exam
Constitutional: No Acute Distress
Eyes: No Conjunctival Hemorrhage and Sclera Anicteric
Oral: Poor Dentition
Cardiovascular: Regular Rate and S1/S2
Pulmonary: Clear
Gastrointestinal: Soft, Non Tender, Non Distended, Normal Bowel Sounds and Other (Ileostomy with small amt of loose stool. )
Genito-Urinary: Clear Urine (SPC)
Extremities: Negative Edema
Wound: Other (Reviewed wound photos: abd wall wound with granulating tissue. Post-debridement sacral large wound with yellow-fibrinous exudate, some necrosis, coccyx visible.)
Neurological: AO x 3
Lab / Diagnostic Study Results
09/30/23 05:47
09/30/23 05:48
Abs Immat Gran (auto) 0.2 10^3/uL (0-0.05) H 09/29/23 06:26
Absolute Neuts (auto) 8.3 10^3/uL (1.4-6.5) H 09/29/23 06:26
Absolute Lymphs (auto) 2.5 10^3/uL (1.2-3.4) 09/29/23 06:26
Absolute Monos (auto) 1.1 10^3/uL (0.1-0.6) H 09/29/23 06:26
Absolute Basos (auto) 0.1 10^3/uL (0-0.2) 09/29/23 06:26
Immature Gran % 1.8 % (0-0.5) H 09/29/23 06:26
Neutrophils % 66.1 % (42.2-75.2) 09/29/23 06:26
Lymphocytes % 19.6 % (20.5-51.1) L 09/29/23 06:26
Monocytes % 8.5 % (1.7-9.3) 09/29/23 06:26
Eosinophils % 3.4 % (0-6) 09/29/23 06:26
Basophils % 0.6 % (0-2) 09/29/23 06:26
PT 17.2 Sec (11.4-14.6) H 09/29/23 06:26
INR 1.42 09/29/23 06:26
Lactic Acid Cancelled 09/28/23 22:45
Microbiology Results
Micro:
09/29/23 17:00 Tissue Culture - Preliminary
Other-Please specify - Other Proteus mirabilis
Gram Stain - Preliminary
09/29/23 17:00 Wound Culture - Preliminary
Sacral Proteus mirabilis
Gram Stain - Preliminary
09/28/23 19:50 Urine Culture - Preliminary
Urine Pseudomonas aeruginosa
Gram negative bacilli
09/30/23 05:47 MRSA Screen - Pending
Nose
09/28/23 18:51 Blood Culture - Preliminary
Blood/Venous No Growth in 24 hours- Final report to follow
09/28/23 18:51 Blood Culture - Preliminary
Blood/Venous No Growth in 24 hours- Final report to follow
09/29/23 CXR: Extremely low lung volumes are noted with some likely minor bibasilar atelectatic changes. No pleural effusion or pneumothorax. Right PICC in place
Assessment / Plan
# Infected stage IV osteo of sacrum. Suspect chronic osteo
- 09/29/23 s/p I+D
- OR cx Proteus
- DC Vancomycin.
- Continue meropenem for now.
- If no plans for flap closure, no benefit in long course IV antibiotic.
# Additional Medical History
DM, diet controlled
Asthma
HTN
depression
Bipolar I
hx necrotizing fasciitis s/p penectomy/orchiectomy 2012
chronic suprapubic catheter
hx Vertical sleeve gastrectomy 2017
Ex-lap, aborted duodenal switch short boer, s/p ORION, incarcerated incisional hernia repair (05/14/23) with muscle flap/mesh complicated by abd wall hematoma s/p re-op, subtotal colectomy (colon necrosis, perforation) 05/15/23.
Hemorrhage s/p ORION, J tube, ileostomy 05/2023
chronic stage 4 sacral decubitus, s/p I+D 08/25/23 at [facility]
Cholecystectomy
Hx Tracheostomy
left BKA
--- NOTE | 2023-09-30 13:00 | PTCARENOTE ---
wound care done by WOC RN and surgeon, premed as noted. positioned to side, supported with pillows. abd dressing front changed per order.
[2023-09-30] MEDS: HYDROPHOR TOPICAL (14:30)
--- NOTE | 2023-09-30 15:53 | W.PN.HOSP.TC ---
Today's Communication/Plan
-
Continue IV antibiotics per
Continue wound care pending final cultures and sensitivities.
Attempt to wean off Levophed
Continue midodrine
Continue current analgesic regimen
Physical therapy assessment
Assessment / Plan
Assessment / Plan
Impression:
Presentation with hypotension and altered mental status
Toxic metabolic encephalopathy secondary to hypotension/sepsis.
Sepsis with septic shock.
-Possible sources infected stage IV sacral decubital wound, UTI (complicated UTI with suprapubic tube in place)
-Stage IV sacral wound with osteomyelitis
Acute on chronic hypotension
Hypercalcemia
Conditions prior to admission:
Recent hospitalization at [facility].
�Attempt of elective repair of incarcerated incisional hernia at [facility] on 05/18 complicated with multiorgan failure respiratory failure requiring tracheostomy and including ischemic bowel
-Second trip to the OR on 05/27 and for bleeding, ORION with G-tube placement end ileostomy placement with closure.
-Intra-abdominal collection drained by IR on 06/08
-06/09/2023 right lower quadrant flap debridement
Prolonged metabolic encephalopathy
Prolonged ventilatory dependent respiratory failure status post tracheostomy, currently decannulated.
Nonischemic cardiomyopathy with echo 05/18 with mildly decreased LVEF 40-45%
Sacral pressure wound requiring readmission to [facility] on 08/19 - 09/19
Status post PEG tube removed on July 2023.
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
Ureteral stricture with chronic suprapubic catheter in place.
Left BKA 2017
Chronic pain syndrome with narcotic dependence
Chronic hypotension requiring midodrine
Asthma without exacerbation
Anemia of chronic disease
Anxiety/depression.
Recovered alcoholic sober for 10 years
Severe malnutrition with reported 90 pound weight loss over the last 3 months
Impression:
Toxic metabolic encephalopathy reported lethargic open presentation currently improved and mental status back to baseline
Sepsis (leukocytosis, hypotension, hypothermia)
Septic shock
Possible source: Stage IV sacral decubital wound with osteomyelitis
Status post surgical sharp debridement on 08/31
Wound culture positive for Proteus
Blood cultures negative to date
Suprapubic catheter culture with Pseudomonas
Empiric antibiotics initially vancomycin meropenem narrowed to meropenem I will
Septic shock with acute on chronic hypotension.
Likely combination of above as well as narcotic related and low volume status.
Off Levophed as of 5 AM.
Continue midodrine
Continue isotonic solution
Follow hemodynamics and renal function closely.
Anemia of chronic disease.
Hemoglobin 10�8 with dilution
No evidence of active bleeding.
Iron/TIBC indicative of anemia of chronic disease/inflammation
Monitor hemoglobin closely
Chronic pain syndrome requiring narcotics
Outpatient regimen including short acting oxycodone, Lyrica, methocarbamol
Continue IV hydromorphone for breakthrough pain
Reassess with consideration for reduction of long-acting narcotics along with short acting for breakthrough pain. Consider adjunctive therapy with gabapentin
Severe malnutrition.
Nutritional consult.
Anxiety/depression
Continue quetiapine
Deconditioning
Physical therapy assessment once hemodynamically stable
Full code
DVT prophylaxis subcu heparin.
Anticipated Discharge: > 48 hours
Subjective/Interval History
-
Date of Service: September 30, 2023
Objective Data
-
Labs:
Laboratory Results
09/30/23 09/30/23
05:47 05:48
WBC 9.4
Hgb 8.4 L
Hct 28.3 L
Plt Count 402 H
Sodium 136
Potassium 4.5
Chloride 111 H
Carbon Dioxide 20 L
BUN 12
Creatinine 1.1
Glucose 132 H
Calcium 9.7
Vital Signs:
Vital Signs
Temp Pulse Resp BP Pulse Ox
98.6 F 71 8 92/52 96
09/30/23 11:00 09/30/23 14:30 09/30/23 14:30 09/30/23 14:30 09/30/23 14:30
I&O
09/29/23 09/30/23 10/01/23
06:59 06:59 06:59
Intake Total 67.8 / 199.1 3153.8 / 3296.3 1708.8 / 1708.8
Output Total 360 / 385 1550 / 1550 375 / 375
Balance -292.2 / -185.9 1603.8 / 1746.3 1333.8 / 1333.8
Physical Exam
-
General: Well Developed and No Apparent Distress
HEENT: Normocephalic, Atraumatic and Moist Mucous Membranes
Respiratory: Clear to Auscultation
Cardiac: Regular Rhythm and S1/S2; Negative Murmur, Rub or Gallop
GI: Soft, Nontender, Nondistended, Normal Bowel Sounds and Ostomy; Negative Organomegaly
Rectal: Deferred by Provider
Genito-urinary: Other (Suprapubic tube)
Musculoskeletal: No Clubbing, No Cyanosis and No Edema
Skin: Negative Rash
Neuro: Awake, Alert, Oriented, AO x 3 and Nonfocal/Grossly Intact
--- NOTE | 2023-09-30 18:16 | PTCARENOTE ---
titrated levophed again back up to 3 mcg/min. ordered dinner from local restaurant for delivery, presently comfortable and denies need to be repositioned at present. SP cath leaked, gown and dressing changed. pt notes has spasms at times and
this is not new.
--- NOTE | 2023-09-30 18:37 | PTCARENOTE ---
SP site leaked again, gown and drain sponge changed. no traction on tube, nothing overtly noted unusual, pt reports this is kind of a new problem.
[2023-09-30] MEDS: SEROQUEL 200 MG PO (19:47)
[2023-09-30] MEDS: MUCINEX 1200 MG PO (19:47)
--- NOTE | 2023-09-30 20:00 | PTCARENOTE ---
Patient received in bed, AAOX3, flat affect, needs lots of encouragement to participate in plan of care. NSR, afebrile, blood pressure as documented. palpable pulses throughout, no edema noted. Lungs diminished bibasilar, pulse ox 97% on room
air. Abdomen obese with positive bowel sounds. illeostomy draining liquid brown stool. SPT draining clear yellow urine. Dressings all clean dry and intact. Patient agreeable to repositioning at this time. RDL PICC with IVF and Levophed gtt
infusing as documented. Call ash within reach
[2023-10-01] VITALS (41 sets, daily range): BP systolic 80–110; BP diastolic 41–85; BMI 28.9
[2023-10-01] MEDS: HEPARIN 5000 UNITS SC ×4 (00:16→23:14)
[2023-10-01] MEDS: LEVOPHED 250 IV ×2 (01:45→19:55)
[2023-10-01] MEDS: STERILE WATER FOR INJECTION 10 ML IV ×4 (01:46→19:49)
[2023-10-01] MEDS: MERREM 500 MG IV ×2 (01:46→08:19)
[2023-10-01 04:40] LABS: % Basophils 0.3 % (0-2); % Eosinophils 4.2 % (0-6); % Immature Granulocytes 1.9 % (0-0.5); % Lymphocytes 24.5 % (20.5-51.1); % Monocytes 7.9 % (1.7-9.3); % Neutrophils 61.2 % (42.2-75.2); Absolute Eosinophils 0.4 10^3/uL (0-0.7); Absolute Immature Granulocytes 0.2 10^3/uL (0-0.05); Absolute Lymphocytes 2.2 10^3/uL (1.2-3.4); Absolute Monocytes 0.7 10^3/uL (0.1-0.6); Absolute Neutrophils 5.5 10^3/uL (1.4-6.5); Hematocrit 24.6 % (39.0-52.0); Hemoglobin 7.4 g/dL (13.0-18.0); Mean Corp Hgb Conc. 30.1 g/dL (33.0-37.0); Mean Corpuscular Hgb 27.1 pg (27.0-31.0); Mean Corpuscular Volume 90.1 fL (80.0-94.0); Mean Platelet Volume 8.3 fL (7.4-10.4); Nucleated Red Blood Cells % 0 % (-); Platelet Count 335 10^3/uL (130-400); Red Blood Cell Count 2.73 10^6/uL (4.70-6.10); Red Cell Dist. Width 15.1 % (11.5-14.5)
--- NOTE | 2023-10-01 05:00 | PTCARENOTE ---
SPT leaking, abdominal dressing changed, CHG bath given, linens changed.
[2023-10-01 05:08] LABS: Blood Urea Nitrogen 8 mg/dl (9-20); Calcium 9.3 mg/dl (8.4-10.2); Carbon Dioxide 21 mmol/L (22-30); Chloride 112 mmol/L (98-107); Estimated Creatinine Clearance 101 ml/min; Glucose 70 mg/dl (70-99); Potassium 3.3 mmol/L (3.5-5.1); Sodium 138 mmol/L (135-145); eGFR > 60.00
[2023-10-01 05:13] LABS: Vancomycin Random 18.3 ug/ml
[2023-10-01] MEDS: DILAUDID 1 MG IV ×3 (05:36→19:59)
[2023-10-01] MEDS: KCL 40 MEQ PO ×2 (05:53→11:43)
--- NOTE | 2023-10-01 07:16 | W.PN.INTV ---
Addendum entered and electronically signed by Marium Espinoza DO 10/01/23 16:29:
Transferred to IMU
No further pulmonary recs, we will sign off upon transfer
Original Note:
Today's Communication / Plan
Recommendations
Remains on low dose pressor, continue to wean as tolerated
On abx per ID
Continue PT/OT, turns/ambulation, OOB
Pain control
Can likely transfer to IMU while on low pressor requirements
Assessment
-
Patient is a 43-year-old male with previous history of necrotizing fasciitis status post resection, asthma, Crohn's disease with ischemic bowel status post colon resection with ileostomy, sacral decubitus wound, tracheostomy, bedbound for the last 6
months presenting to [place] [facility] with mental status changes, abrupt onset. There was noted fever at home 103.6 Fahrenheit over the weekend which was treated and did not recur. On arrival to ER patient was notably hypotensive, reportedly in the
60s, placed on IV fluids. Given refractory shock, was admitted to ICU for pressor requirements.
Acute refractory septic shock requiring pressors
Stage IV decub with overlying necrotic tissue for OR today
Hypercalcemia
Hyponatremia
Bedbound x 6 mos, refusing turns
Profound weakness/deconditioning
Decrease PO intake with weight loss
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
Sacral decubitus wound s/p debridement 08/25/23 maintained with wound vac
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
Vertical Sleeve Gastrectomy in 08/2017
Incarcerated hernia s/p ex lap and hernia repair with attempt to convert VSG to BPD/DS which was aborted due to short small bowel
Resultant poor wound closure/Anterior abdominal wound s/p muscle flap/mesh closure c/b hematoma requiring evac
History of subtotal colectomy 05/15/23 for colonic necrosis and perforation causing fecal peritonitis
Recent tracheostomy/J tube, reversed
Chronic pain secondary to wounds
Orthostatic hypotension on chronic midodrine
Asthma
Anxiety/depression
Chronic anemia
ETOH abuse
Plan
No current signs of metabolic encephalopathy or MS changes/following commands
Psychiatric history noted above, taking home meds which can be resumed
Chronic pain noted
Pain/sedation: PRN reviewed, dilaudid IV for turns/dressing changes
RASS goals: 0
Hemodynamically unstable, requiring pressors. Septic shock with potential cardiac EOD
Requiring pressors: levo @ 6, weaned to 3
Cardiac history reviewed--orthostatic hypotension, on midodrine/resumed on this
Normal function on prior ECHO
Oxygen needs: currently on room air/tolerating
Prior history of lung disease: asthma, resume inhaler PRN, not symptomatic from that standpoint
Supplemental O2 as indicated to maintain sats > 89%
CXR/CT reviewed indicating NAD
Diet resumed, intake has been poor
Client Finance Analyst recommendations for poor PO intake
Aspiration precautions, HOB > 30 degrees
Speech therapy eval can be considered if at elevated risk
GI prophylaxis if indicated for mechanical ventilation >48 hours, prior history of GERD, stress ulcer formation in the critically ill
Creat at baseline, no history of renal disease
Void trials
Follow urine output, critical I/Os
Replete electrolytes as needed
Uro c/s for SPC
Fever and increased WBC on presentation, suspect underlying sacral wound source
s/p OR sacral wound debridement 09/29/23
Started on empiric antibiotics
Cultures reviewed
Tissue culture + proteus
Urine culture + pseudomonas/GNB
ID consulted
Follow fever trend, WBC count
Lactate not elevated on admission, <2
CBC stable, no signs of bleeding or coagulopathy.
DVT prophylaxis as assessed based on risk, including mechanical SCDs
Can transfuse if indicated for Hb <7, plt < 10
INR WNL
No prior h/o diabetes or thyroid disease
Monitor accuchecks PRN/SS coverage if needed
Extensive [facility]:
Plan on 05/14/23 was for elective repair of incarcerated incisional hernia repair.� He underwent ex lap with ORION, repair of hernia, plan to convert VSG to BPD/DS which was aborted due to short small bowel.� He had abd wall reconstruction with muscle
flaps and mesh by Plastics. Decompensated post op with hypotension, lactic acidosis, JAIR, coagulopathy (Elev INR), severe metabolic acidosis s/p intubation.� CT showing abdominal wall hematoma, RLL PNA. Taken back for re-exploration and evacuation
of hematoma, with subtotal colectomy 05/15/23 for colonic necrosis and perforation causing fecal peritonitis. On CRRT while in ICU, developed rapid AFib as well
Taken back to OR 05/27 and 05/28 for bleeding, ORION and placement of J tube, attempted ileostomy--eventual placement wtih closure 05/30/23. IR drain placed 06/08 for LLQ collection
Developed pneumomediastinum. Returned to [place] on 07/09/23 for RLQ flap debridement. Pressure wound noted in coccyx with necrosis was noted as well during hospitalization.
[facility]23 for hypotension, acute electrolyte imbalances, rapid weight loss (376lbs in 04/2023 down to 278 on this admission), decreased PO intake.� He is noted to have large unstageable wound, abd wound appeared clean/intact
with wound vac. There was a plan to debride sacral wound on 08/24, underwent procedure 08/25 noted to be stage 4, then discharged back to [place].
Diagnostic Data
Chest X-Ray: 09/28/23 No acute cardiopulmonary process.
CT Scan:
ECHO 04/2023 [facility]: mildly decreased LV function, EF 40-45%, grade I DD.� Mildly decreased RV function, mild TR PAP n/a.
PFT's:
Reports and relevant images were personally reviewed.
-----
Critical Care time 35 mins -- The patient is admitted for acute critical illness for the treatment of vital organ failure and/or prevention of further life-threatening conditions. Total care includes time spent in review of history, physical exam,
medications, hemodynamic/ventilator parameters, laboratory data, imaging and discussion with house staff, pharmacy, respiratory therapy, physical medicine teacher, and nursing.
Subjective Dataa
Subjective Data
Date of Service:
Date of Service: October 01, 2023
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
Subjective:
no new complaints
remains on low dose pressor
Objective Data
Data Reviewed
Vital Signs / I&O / Oxygen:
Vital Signs
Temp Pulse Resp BP Pulse Ox
98.7 F 82 12 92/59 96
10/01/23 04:00 10/01/23 06:30 10/01/23 06:30 10/01/23 06:30 10/01/23 05:15
Intake and Output
09/30/23 10/01/23 10/02/23
06:59 06:59 06:59
Intake Total 3153.8 / 3296.3 3425.3 / 3425.3
Output Total 1550 / 1550 925 / 925
Balance 1603.8 / 1746.3 2500.3 / 2500.3
SaO2 96
Physical Exam
General: Comfortable, Poor Appetite, Other (NAD, chronically ill appearing) and Other (deconditioned)
HEENT: Normocephalic, Anicteric and Moist Mucous Membranes
Cardiovascular: S1-S2 and Regular Rhythm
Respiratory: Clear and Non-Labored Respirations
GI: Soft, Non Distended, Tender and Other (suprapubic tube, ostomy noted, healing wound anteriorly noted/pink)
Neurology: Awake, Alert, Oriented, AO x 3, No Motor Deficits and Depressed (flat affect)
Skin: Warm, Dry and Other (wound on sacrum)
Labs/Micro/Reports
Lab Data
10/01/23 04:15
10/01/23 04:15
Microbiology
09/29/23 17:00 Sacral Wound Culture - Preliminary
Proteus mirabilis
09/29/23 17:00 Sacral Gram Stain - Preliminary
09/28/23 19:50 Urine Urine Culture - Preliminary
Pseudomonas aeruginosa
Gram negative bacilli
09/28/23 18:51 Blood/Venous Blood Culture - Preliminary
No Growth in 48 hours- Final report to follow
09/28/23 18:51 Blood/Venous Blood Culture - Preliminary
No Growth in 48 hours- Final report to follow
09/29/23 17:00 Other-Please specify - Other Tissue Culture - Preliminary
Proteus mirabilis
09/29/23 17:00 Other-Please specify - Other Gram Stain - Preliminary
[2023-10-01] MEDS: SEROQUEL 50 MG PO (07:49)
[2023-10-01] MEDS: ELAVIL 100 MG PO ×2 (07:49→19:50)
[2023-10-01] MEDS: ROXICODONE 20 MG PO ×3 (07:49→19:50)
[2023-10-01] MEDS: WELLBUTRIN XL (24 hour extended release) 150 MG PO (07:49)
[2023-10-01] MEDS: DITROPAN 5 MG PO ×4 (07:49→19:49)
[2023-10-01] MEDS: LYRICA 50 MG PO ×3 (07:49→19:50)
[2023-10-01] MEDS: ProAmatine 15 MG PO ×3 (07:49→16:02)
[2023-10-01] MEDS: PROTONIX 40 MG PO (07:49)
[2023-10-01] MEDS: THERAGRAN 1 TABLET PO (07:50)
--- NOTE | 2023-10-01 08:00 | PTCARENOTE ---
recd pt handoff at bedside, no c/o, sleepy. levophed at 4 mcg/min, see VS. Assessed. SP cath leaking slightly, dressing changed. ordered and eating breakfast. Orders a lot of food but then appetite seems to fade.
[2023-10-01] MEDS: ADVAIR HFA 115/21 MCG INHALER 2 PUFF INH ×2 (08:11→19:39)
[2023-10-01] MEDS: MUCINEX 1200 MG PO ×2 (08:14→19:49)
[2023-10-01] MEDS: PERIDEX 0.12% ORAL RINSE 15 ML PO (08:22)
--- NOTE | 2023-10-01 09:08 | W.PN.ID1 ---
Date of Service
Date of Service: October 01, 2023
Today's Communication
Continue abx's: Vanco, cefepime, metronidazole
Assessment / Plan
# Infected stage IV osteo of sacrum. Suspect chronic osteo
# MRSA colonization
- 09/29/23 s/p I+D, coccyx bone exposed
- Prelim OR cx Proteus, S. aureus
-Resume Vancomycin (d4) pending final cx.
- Narrow meropenem to cefepime 2gIV q12 and metronidazole 500mg po q8 (d4 abx)
- If no plans for flap closure, no benefit in long course IV antibiotic.
#Enterobacter, Klebsiella bacteruria
- Suprapubic catheter changed 09/29/23
# Additional Medical History
DM, diet controlled
Asthma
HTN
depression
Bipolar I
hx necrotizing fasciitis s/p penectomy/orchiectomy 2012
chronic suprapubic catheter
hx Vertical sleeve gastrectomy 2017
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
Hemorrhage s/p ORION, J tube, ileostomy 05/2023
chronic stage 4 sacral decubitus, s/p I+D 08/25/23 at [facility]
Cholecystectomy
Hx Tracheostomy
left BKA
Chief Complaint
-: Other (Stage IV sacral wound)
Subjective / Review of Systems
No new complaints
Vital Signs / Physical Exam
Vital Signs
Vital Signs
Temp Pulse Resp BP Pulse Ox
98.7 F 94 16 95/57 96
10/01/23 07:39 10/01/23 08:12 10/01/23 08:12 10/01/23 07:49 10/01/23 05:15
Physical Exam
Constitutional: No Acute Distress and Comfortable
Pulmonary: Clear (anteriorly)
Gastrointestinal: Soft, Non Tender and Non Distended
Neurological: AO x 3
Lines: PICC (RUE intact)
Objective Data
Lab Data
Lab Results
10/01/23 04:15
10/01/23 04:15
PT 17.2 Sec (11.4-14.6) H 09/29/23 06:26
INR 1.42 09/29/23 06:26
APTT 50.0 Sec (23.4-35.0) H 09/29/23 06:26
Estimated Creat Clear 101 ml/min 10/01/23 04:15
Lactic Acid Cancelled 09/28/23 22:45
Total Bilirubin 0.3 mg/dl (0.2-1.3) 09/29/23 06:26
AST 21 U/L (17-59) 09/29/23 06:26
ALT 32 U/L (0-50) 09/29/23 06:26
Alkaline Phosphatase 435 U/L (38-126) H 09/29/23 06:26
Most recent labs reviewed.
Micro Results:
09/28/23 19:50 Urine Culture - Final
Urine Enterobacter cloacae
Klebsiella pneumoniae
09/29/23 17:00 Wound Culture - Preliminary
Sacral Proteus mirabilis
Staphylococcus aureus
Gram Stain - Preliminary
09/30/23 05:47 MRSA Screen - Final
Nose Staph aureus MRSA
09/28/23 18:51 Blood Culture - Preliminary
Blood/Venous No Growth in 48 hours- Final report to follow
09/28/23 18:51 Blood Culture - Preliminary
Blood/Venous No Growth in 48 hours- Final report to follow
09/29/23 17:00 Tissue Culture - Preliminary
Other-Please specify - Other Proteus mirabilis
Gram Stain - Preliminary
09/29/23 CXR: Extremely low lung volumes are noted with some likely minor bibasilar atelectatic changes. No pleural effusion or pneumothorax. Right PICC in place
[2023-10-01] MEDS: ANTIFUNGAL CLEAR 1 APPLIC TOPICAL ×2 (10:06→19:50)
[2023-10-01] MEDS: HYDROPHOR 1 APPLIC TOPICAL (10:06)
--- NOTE | 2023-10-01 10:49 | PHA.VAN.FU ---
Vancomycin Assessment / Plan
- Assessment
Renal Function: Stable
WBC's are: WNL
In the past 24 hrs, patient has been: Afebrile
Concomitant Antimicrobials: Cefepime
Patient was started on vancomycin on 09/27. Then was discontinued on 09/29. Patient received a load of 2000mg, followed by 750mg Q12H. Trough level obtained (27.9) on 09/30/23. Random level obtained on 09/30 at 0415 ~34 Hrs from last dose was 18.3.
- Assessment - Therapeutic Drug Monitoring
Random Level: 09/30 was 18.3
- Dosing Plan
Dosing by Level: Hold off on dosing today
- Monitoring Plan
Random Level: 10/02/23 @ 0600
- Follow Up
Pharmacy will continue to follow.
Vancomycin Follow UP
- -
Patient Age: 43
Patient Sex: Male
Vancomycin Day #: 4
Indication: Skin And Soft Tissue
Requesting Provider: Dr. Gomez
Pertinent Antimicrobial Allergies:
NKDA
Height / Weight:
Height 5 ft 7 in
Actual Weight 83.6 kg
Pertinent Past Medical History: L. BKA
- Vital Signs / Lab Results
Temp Pulse Resp BP Pulse Ox
98.7 F 99 13 89/65 98
10/01/23 07:39 10/01/23 09:30 10/01/23 09:30 10/01/23 09:30 10/01/23 08:00
Lab Results - Hematology
09/28/23 09/29/23 09/30/23
18:39 06:26 05:47
WBC 13.3 H 12.6 H 9.4
10/01/23
04:15
WBC 9.0
Lab Results - Chemistry
09/28/23 09/28/23 09/28/23
18:39 19:17 20:25
BUN Cancelled Cancelled 25 H
Creatinine Cancelled Cancelled 1.3
Estimated Creat Clear Cancelled Cancelled
Albumin Cancelled Cancelled 3.0 L
09/29/23 09/30/23 10/01/23
06:26 05:48 04:15
BUN 19 12 8 L
Creatinine 1.3 1.1 0.9
Estimated Creat Clear 70 83 101
Albumin 2.3 L
09/28/23 09/28/23
18:39 22:45
Lactic Acid 0.9 Cancelled
Microbiology Results
09/28/23 19:50 Urine Culture - Final
Urine Enterobacter cloacae
Klebsiella pneumoniae
09/29/23 17:00 Wound Culture - Preliminary
Sacral Proteus mirabilis
Staphylococcus aureus
Gram Stain - Preliminary
09/30/23 05:47 MRSA Screen - Final
Nose Staph aureus MRSA
09/28/23 18:51 Blood Culture - Preliminary
Blood/Venous No Growth in 48 hours- Final report to follow
09/28/23 18:51 Blood Culture - Preliminary
Blood/Venous No Growth in 48 hours- Final report to follow
09/29/23 17:00 Tissue Culture - Preliminary
Other-Please specify - Other Proteus mirabilis
Gram Stain - Preliminary
Therapeutic Drug Monitoring
Vancomycin Trough 27.9 ug/ml (5-20) H* 09/30/23 05:47
Random Vancomycin 18.3 ug/ml 10/01/23 04:15
--- NOTE | 2023-10-01 11:22 | PTCARENOTE ---
medicated pre dressing change, positioned for comfort, sacral dressing changed. abd dressing changed. SP tube leaked, drain sponges changed. Ileostomy wafer loose, new appliance applied. see wound documentation.
[2023-10-01] MEDS: FEOSOL 325 MG PO (11:44)
[2023-10-01] MEDS: MAXIPIME 2000 MG IV ×2 (11:45→19:49)
--- NOTE | 2023-10-01 12:26 | PN.CDI ---
CDI
- -
CDI:
Physician Documentation Request
Admit Date: 09/28/23 21:25
Dear Doctor Cisco,
Patient admitted with sepsis.
09/28 [facility] note, 'L ear rim with what appears to be a healing stage 2 vs unstageable PI.'
Physician documentation of the type and location of wounds is required for compliant documentation. Based on the above clinical findings and your assessment, please provide the following in your progress note:
Type (etiology) of ulcer/wound:
- Pressure (decubitus) ulcer
- Other
- Unable to determine
For a pressure ulcer, please also include the stage* of the ulcer:
- Stage 1 - Skin intact, non-blanchable redness
- Stage 2 - Partial thickness loss of dermis, includes intact or open blister
- Stage 3 - Full thickness tissue not including bone, tendon or muscle
- Stage 4 - Full thickness tissue loss, including exposed bone, tendon or muscle
- Unstageable - Full thickness loss in which the base of the ulcer is covered by slough (yellow, whalen, lackey, green or brown) and/or eschar (whalen, brown or black) in the wound bed.
- Unable to determine
Use of terms such as suspected, likely, concern for, or probable (associated with a specific diagnosis that is being evaluated, monitored, or treated as if it exists) are acceptable and can be coded in the inpatient setting, when documented at the
time of discharge.
Thank you,
Ayanna MORRIS,RN,CCDS
CDI Specialist
Available via [place] text
Please use your independent medical judgment in providing your response.
*Source: National Pressure Ulcer Advisory Panel (NPUAP)
--- NOTE | 2023-10-01 12:44 | PTCARENOTE ---
seen by Dr. Peck, for transfusion. case management speaking with mother. questions answered.
--- NOTE | 2023-10-01 12:48 | CM ---
CM following re: discharge planning.
Discussed in Rounds, reviewed pt's chart, met with pt and pt's mother at bedside.
Pt's mother stated again that pt will need higher level of care at discharge, pt expressed his agreement. Per mother, pt was at [facility] for 2 weeks and was discharged to [facility], went to [facility] and
was placed to [facility] for a short term rehab.
CM discussed pt's case with [facility] liaosn and requested pt's clinical faxed to [facility] for a review. Both pt and his mother requested [facility] location.
A referral to [facility] made. Awaiting for determination.
D/C plan: most likely [facility] location.
CM will follow with discharge plan updates as hospitalization progresses
--- NOTE | 2023-10-01 13:41 | W.PN.URO.CBU ---
Today's Communication / Plan
-
take 3cc out of balloon
Assessment / Plan
-
sp tube no obvious infection but by history at least colonized fresh sp tube in good working order but spams will try and lesen balloon but anthony need ur cx and antispasmptics
Diagnosis
-
Date of Service: October 01, 2023
-
Patient Diagnosis:
Post Op Day:
Patient Diagnosis:
Post Op Day:
Patient Diagnosis:posible urosepsis in t wth sp tube but who aloso has infected appearing decubiti icu requets sp tube change
Post Op Day:
Subjective
-
urine around sp tube
Objective
-
Vital Signs
Temp Pulse Resp BP Pulse Ox
98.7 F 99 16 99/62 98
10/01/23 11:33 10/01/23 13:30 10/01/23 13:30 10/01/23 13:00 10/01/23 08:00
Intake and Output
09/30/23 10/01/23 10/02/23
06:59 06:59 06:59
Intake Total 3153.8 / 3296.3 3425.3 / 3500.3 865.8 / 865.8
Output Total 1550 / 1550 925 / 925 625 / 625
Balance 1603.8 / 1746.3 2500.3 / 2575.3 240.8 / 240.8
Intake:
Oral fluids 720 / 720 360 / 360
IV fluids (Total) 3003.8 / 3146.3 2705.3 / 2780.3 505.8 / 505.8
Nss 1,000 ml @ 120 mls/hr IV . 2640 / 2760 1690 / 1690
[id number] [facility] Rx#:[id number]
Nss 1,000 ml @ 60 mls/hr IV . 660 / 720 420 / 420
[id number] [facility] Rx#:[id number]
levophed 363.8 / 386.3 355.3 / 370.3 85.8 / 85.8
IV piggybacks 150 / 150
Output:
Liquid stool amount 275 / 275
Ileostomy 275 / 275
Urine, Simms 275 / 275
Suprapubic output 1275 / 1275 650 / 650 625 / 625
Laboratory Results
10/01/23 04:15
10/01/23 04:15
Review of Systems
-
: Incontinence
Physical Exam
-
General - well developed, well nourished, no acute distress
Chest - clear bilaterally
Abdomen - soft, non-tender, positive bowel sounds, no CVAT, no incisional pain or distention
Genitalia - normal
Rectal - normal
Skin - warm & dry with no rash
Neuro - AOx3, no motor deficits
Extremities - no clubbing, no cyanosis, no edema
Incision - clean, dry
Dressing - clean, dry, intact
Counseling
-
take 3 cc out of sp tube balloon
Care Review
Data Reviewed
Discussed with: Nursing and Family
--- NOTE | 2023-10-01 14:00 | PTCARENOTE ---
Received pt. Pt AAOx3, mother Hemalatha at bedside. Pt SR on monitor, on levophed gtt running- see worklist. 1U PRBC infusing. Pt c/o pain in sacrum and abdomen. pt has suprapubic catheter- currently leaking. gauze dressing changed around site. ileostomy
hooked up to urostomy bag. see worklist
--- NOTE | 2023-10-01 14:11 | WOUNDNOTE ---
WO RN NOTE: Patient's mother, Hemalatha requested visit from [employer] RN to help answer questions regarding ostomy and sacral wound. Reviewed plan of care and answered all questions regarding sacral wound with Hemalatha and patient. Discussed importance of
off-loading of sacrum. Patient stated he cannot usually tolerate being on his side but agreed to try wedge. Ostomy appliance recently changed by RN, Felicia. Appliance intact at time of assessment. Per Hemalatha and Felicia, stoma is retracted and prior
pouch was leaking. Felicia also described reddened peristomal skin. Convex barrier 17713 and stoma powder brought to patients room if needed. Currently a urostomy pouch is intact for liquid stool. Will continue to follow up with patient as needed.
Hemalatha asked that staff call her cell at anytime as she does not feel patient is following instructions and plan of care well at this time.
--- NOTE | 2023-10-01 14:49 | W.PN.HOSP.TC ---
Addendum entered and electronically signed by Kishore Peck MD 10/13/23 15:31:
L ear rim with what appears to be a healing stage 2�
Original Note:
Today's Communication/Plan
-
IV antibiotics
Wound care per
Transfused
Attempt to wean off Levophed
Continue isotonic solution
Oral iron.
Physical therapy
Continue current analgesic regimen with IV hydromorphone for breakthrough pain/wound care.
Assessment / Plan
Assessment / Plan
Impression:
Presentation with hypotension and altered mental status
Toxic metabolic encephalopathy secondary to hypotension/sepsis.
Sepsis with septic shock.
-Possible sources infected stage IV sacral decubital wound, UTI (complicated UTI with suprapubic tube in place)
-Stage IV sacral wound with osteomyelitis
Acute on chronic hypotension
Hypercalcemia
Conditions prior to admission:
Recent hospitalization at [facility].
�Attempt of elective repair of incarcerated incisional hernia at [facility] on 05/18 complicated with multiorgan failure respiratory failure requiring tracheostomy and including ischemic bowel
-Second trip to the OR on 05/27 and for bleeding, ORION with G-tube placement end ileostomy placement with closure.
-Intra-abdominal collection drained by IR on 06/08
-06/09/2023 right lower quadrant flap debridement
Prolonged metabolic encephalopathy
Prolonged ventilatory dependent respiratory failure status post tracheostomy, currently decannulated.
Nonischemic cardiomyopathy with echo 05/18 with mildly decreased LVEF 40-45%
Sacral pressure wound requiring readmission to [facility] on 08/19 - 09/19
Status post PEG tube removed on July 2023.
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
Ureteral stricture with chronic suprapubic catheter in place.
Left BKA 2017
Chronic pain syndrome with narcotic dependence
Chronic hypotension requiring midodrine
Asthma without exacerbation
Anemia of chronic disease
Anxiety/depression.
Recovered alcoholic sober for 10 years
Severe malnutrition with reported 90 pound weight loss over the last 3 months
Impression:
Toxic metabolic encephalopathy reported lethargic open presentation currently improved and mental status back to baseline
Sepsis (leukocytosis, hypotension, hypothermia)
Septic shock
Possible source: Stage IV sacral decubital wound with osteomyelitis
Status post surgical sharp debridement on 08/31
Wound culture positive for Proteus
Blood cultures negative to date
Suprapubic catheter culture with Pseudomonas likely colonized
ID input appreciated
Continue antibiotics: Vancomycin, cefepime, metronidazole.
Septic shock with acute on chronic hypotension.
Likely combination of above as well as narcotic related and low volume status.
Attempt to wean off Levophed
Continue midodrine
Continue isotonic solution
Follow hemodynamics and renal function closely.
Anemia of chronic disease.
Hemoglobin 10�8-7.4 with dilution
No evidence of active bleeding.
Iron/TIBC indicative of anemia of chronic disease/inflammation
With trending down hemoglobin and soft BP, will transfuse 1 unit of packed red blood cells per
Start oral iron
Chronic pain syndrome requiring narcotics
Outpatient regimen including short acting oxycodone, Lyrica, methocarbamol
Continue IV hydromorphone for breakthrough pain
Reassess with consideration for reduction of long-acting narcotics along with short acting for breakthrough pain. Consider adjunctive therapy with gabapentin
Severe malnutrition.
Nutritional consult.
Anxiety/depression
Continue quetiapine
Deconditioning
Physical therapy assessment once hemodynamically stable
Full code
DVT prophylaxis subcu heparin.
Anticipated Discharge: > 48 hours
Subjective/Interval History
-
Date of Service: October 01, 2023
Objective Data
-
Labs:
Laboratory Results
10/01/23
04:15
WBC 9.0
Hgb 7.4 L
Hct 24.6 L
Plt Count 335
Sodium 138
Potassium 3.3 L D
Chloride 112 H
Carbon Dioxide 21 L
BUN 8 L
Creatinine 0.9
Glucose 70
Calcium 9.3
Vital Signs:
Vital Signs
Temp Pulse Resp BP Pulse Ox
98.8 F 91 21 108/62 98
10/01/23 14:02 10/01/23 14:02 10/01/23 14:02 10/01/23 14:02 10/01/23 08:00
I&O
09/30/23 10/01/23 10/02/23
06:59 06:59 06:59
Intake Total 3153.8 / 3296.3 3425.3 / 3500.3 1057.6 / 1057.6
Output Total 1550 / 1550 925 / 925 625 / 625
Balance 1603.8 / 1746.3 2500.3 / 2575.3 432.6 / 432.6
Physical Exam
-
General: Well Developed and No Apparent Distress
HEENT: Normocephalic, Atraumatic and Moist Mucous Membranes
Respiratory: Clear to Auscultation
Cardiac: Regular Rhythm and S1/S2; Negative Murmur, Rub or Gallop
GI: Soft, Nontender, Nondistended and Normal Bowel Sounds; Negative Organomegaly
Rectal: Deferred by Provider
Musculoskeletal: No Clubbing, No Cyanosis and No Edema
Skin: Negative Rash
Neuro: Nonfocal/Grossly Intact
[2023-10-01] MEDS: FLAGYL 500 MG PO ×2 (16:03→23:14)
[2023-10-01] MEDS: NSS 1000 IV (17:28)
[2023-10-01] MEDS: SEROQUEL 200 MG PO (19:50)
[2023-10-01] MEDS: PERIDEX 0.12% ORAL RINSE PO (19:51)
[2023-10-02] VITALS (16 sets, daily range): BP systolic 82–132; BP diastolic 42–90; PULSE 93; O2SAT 96
[2023-10-02] MEDS: ROXICODONE 20 MG PO ×3 (02:52→13:57)
[2023-10-02] MEDS: MAXIPIME 2000 MG IV ×2 (04:27→11:19)
[2023-10-02] MEDS: STERILE WATER FOR INJECTION 10 ML IV ×2 (04:27→11:19)
[2023-10-02] MEDS: DILAUDID 1 MG IV ×2 (04:27→11:17)
[2023-10-02 04:49] LABS: % Basophils 0.5 % (0-2); % Eosinophils 3.8 % (0-6); % Immature Granulocytes 1.9 % (0-0.5); % Monocytes 8.4 % (1.7-9.3); % Neutrophils 62.4 % (42.2-75.2); Absolute Basophils 0.1 10^3/uL (0-0.2); Absolute Eosinophils 0.4 10^3/uL (0-0.7); Absolute Immature Granulocytes 0.2 10^3/uL (0-0.05); Absolute Lymphocytes 2.5 10^3/uL (1.2-3.4); Absolute Monocytes 0.9 10^3/uL (0.1-0.6); Absolute Neutrophils 6.9 10^3/uL (1.4-6.5); Hemoglobin 8.3 g/dL (13.0-18.0); Mean Corp Hgb Conc. 30.7 g/dL (33.0-37.0); Mean Corpuscular Hgb 27.4 pg (27.0-31.0); Mean Corpuscular Volume 89.1 fL (80.0-94.0); Mean Platelet Volume 8.4 fL (7.4-10.4); Nucleated Red Blood Cells % 0 % (-); Platelet Count 333 10^3/uL (130-400); Red Blood Cell Count 3.03 10^6/uL (4.70-6.10); Red Cell Dist. Width 16.1 % (11.5-14.5)
[2023-10-02 05:14] LABS: Blood Urea Nitrogen 9 mg/dl (9-20); Calcium 9.2 mg/dl (8.4-10.2); Carbon Dioxide 19 mmol/L (22-30); Chloride 113 mmol/L (98-107); Estimated Creatinine Clearance 91 ml/min; Glucose 85 mg/dl (70-99); Potassium 3.9 mmol/L (3.5-5.1); Sodium 136 mmol/L (135-145); eGFR > 60.00
[2023-10-02 05:26] LABS: Vancomycin Random 12.4 ug/ml
[2023-10-02] MEDS: ADVAIR HFA 115/21 MCG INHALER 2 PUFF INH (07:17)
[2023-10-02] MEDS: WELLBUTRIN XL (24 hour extended release) 150 MG PO (07:41)
[2023-10-02] MEDS: ProAmatine 15 MG PO ×2 (07:41→11:20)
[2023-10-02] MEDS: THERAGRAN 1 TABLET PO (07:41)
[2023-10-02] MEDS: PERIDEX 0.12% ORAL RINSE 15 ML PO (07:41)
[2023-10-02] MEDS: FLAGYL 500 MG PO (07:41)
[2023-10-02] MEDS: FEOSOL 325 MG PO (07:41)
[2023-10-02] MEDS: SEROQUEL 50 MG PO (07:41)
[2023-10-02] MEDS: LYRICA 50 MG PO (07:41)
[2023-10-02] MEDS: ELAVIL 100 MG PO (07:41)
[2023-10-02] MEDS: PROTONIX 40 MG PO (07:41)
[2023-10-02] MEDS: DITROPAN 5 MG PO ×2 (07:41→12:42)
[2023-10-02] MEDS: HEPARIN 5000 UNITS SC (07:42)
[2023-10-02] MEDS: HYDROPHOR 1 APPLIC TOPICAL (07:50)
[2023-10-02] MEDS: ANTIFUNGAL CLEAR 1 APPLIC TOPICAL (07:50)
[2023-10-02] MEDS: NSS 1000 IV (09:39)
--- NOTE | 2023-10-02 10:03 | PHA.VAN.FU ---
Vancomycin Assessment / Plan
- Assessment
Renal Function: Stable
WBC's are: Trending Up
In the past 24 hrs, patient has been: Afebrile
Concomitant Antimicrobials: cefepime, metronidazole PO
- Assessment - Therapeutic Drug Monitoring
Random Level: 12.4 ( last dose vanc was 750 mg on 09/28/1799
Calculated half life (H): based on last 2 random levels -~ 42 h
- Dosing Plan
Continue: dose by random level - pt's est CrCl does not predict vanc clearance
Dosing by Level: Re-dose today (750 mg x 1 dose ( 9 mg/kg))
- Monitoring Plan
Random Level: random level ordered for Tuesday 10/03 AM
- Follow Up
Pharmacy will continue to follow.
Vancomycin Follow UP
- -
Patient Age: 43
Patient Sex: Male
Vancomycin Day #: 5
Indication: Skin And Soft Tissue
Requesting Provider: Dr. Gomez
Pertinent Antimicrobial Allergies:
NKDA
Height / Weight:
Height 5 ft 7 in
Actual Weight 83.6 kg
Pertinent Past Medical History: L. BKA
- Vital Signs / Lab Results
Temp Pulse Resp BP Pulse Ox
99.3 F 81 15 132/80 98
10/02/23 04:00 10/02/23 09:26 10/02/23 09:26 10/02/23 09:26 10/02/23 07:40
Lab Results - Hematology
09/30/23 10/01/23 10/02/23
05:47 04:15 04:13
WBC 9.4 9.0 11.0 H
Lab Results - Chemistry
09/30/23 10/01/23 10/02/23
05:48 04:15 04:13
BUN 12 8 L 9
Creatinine 1.1 0.9 1.0
Estimated Creat Clear 83 101 91
Microbiology Results
09/29/23 17:00 Tissue Culture - Preliminary
Other-Please specify - Other Pseudomonas aeruginosa
Gram negative bacilli
Proteus mirabilis
Gram Stain - Preliminary
09/29/23 17:00 Wound Culture - Final
Sacral Proteus mirabilis
Staph aureus MRSA
Gram Stain - Final
09/28/23 18:51 Blood Culture - Preliminary
Blood/Venous No Growth in 72 hours- Final report to follow
09/28/23 18:51 Blood Culture - Preliminary
Blood/Venous No Growth in 72 hours- Final report to follow
09/28/23 19:50 Urine Culture - Final
Urine Enterobacter cloacae
Klebsiella pneumoniae
09/30/23 05:47 MRSA Screen - Final
Nose Staph aureus MRSA
Therapeutic Drug Monitoring
Vancomycin Trough 27.9 ug/ml (5-20) H* 09/30/23 05:47
Random Vancomycin 12.4 ug/ml 10/02/23 04:13
--- NOTE | 2023-10-02 11:10 | W.DS.TRANS ---
DC Summary - [employer]
-
Discharge Instructions:
Instructions:
Stand-Alone Forms:
Changes to Home Medications: Yes
Discharge Medications:
DC Medications w/original date entered in [employer]
acetaminophen 325 mg tablet 650 mg PO Q6H PRN mild pain/temp>100.4 08/12/23
fluticasone propionate 50 mcg/actuation nasal spray,suspension 1 spray intranasal DAILY Allergies 08/12/23
magnesium hydroxide 400 mg/5 mL oral suspension (Milk of Magnesia) 30 ml PO HS PRN if no bm x 3 days 08/12/23
multivitamin 1 tab PO DAILY Supplement 08/12/23
ondansetron HCl 8 mg tablet 8 mg PO Q12H PRN nausea/vomiting 08/12/23
oxycodone 20 mg tablet 20 mg PO Q4H PRN severe pain 08/12/23
quetiapine 200 mg tablet 200 mg PO HS Mental Health/Anxiety 08/12/23
quetiapine 50 mg tablet 50 mg PO DAILY Mental Health/Anxiety 08/12/23
acetaminophen 500 mg tablet 1,000 mg PO Q6H PRN mild pain 09/07/23
acetaminophen 650 mg rectal suppository 650 mg WI Q4H PRN mild pain/temp>100 09/07/23
albuterol sulfate 90 mcg/actuation aerosol inhaler 2 puff inhalation R Q4 PRN sob/wheezing 09/07/23
amitriptyline 100 mg tablet 100 mg PO BID Mental Health/Anxiety 09/07/23
bisacodyl 10 mg rectal suppository (Dulcolax (bisacodyl)) 10 mg WI DAILY PRN if no results for MOM 09/07/23
bupropion HCl 150 mg 24 hr tablet, extended release 150 mg PO DAILY Mental Health/Anxiety 09/07/23
chlorhexidine gluconate 0.12 % mouthwash 15 ml PO BID ORAL CARE 09/07/23
fluticasone propionate 115 mcg-salmeterol 21 mcg/actuation HFA inhaler (Advair HFA) 2 puff inhalation R BID Lung/Breathing Issues 09/07/23
loperamide 2 mg tablet 2 mg PO Q6H PRN diarrhea 09/07/23
methocarbamol 500 mg tablet 500 mg PO TID Pain 09/07/23
miconazole nitrate 2 % topical cream 1 applic topical BID Skin Issues 09/07/23
midodrine 10 mg tablet 15 mg PO TID Blood Pressure 09/07/23
omeprazole 20 mg tablet,delayed release 40 mg PO DAILY Gastrointestinal Issue 09/07/23
oxybutynin chloride 15 mg tablet,extended release 24 hr 30 mg PO DAILY Urinary Issue 09/07/23
oxycodone 20 mg tablet 20 mg PO DAILY Pain 09/07/23
pregabalin 50 mg capsule 50 mg PO TID Pain 09/07/23
testosterone cypionate 200 mg/mL intramuscular oil 200 mg IM Q14D HORMONE 09/07/23
guaifenesin 600 mg tablet, extended release 12 hr 600 mg PO Q4H PRN cough 09/28/23
Home Medication Changes
Being transferred to half-way hospital on IV antibiotics
Pending Results: No
--- NOTE | 2023-10-02 11:12 | W.PN.ID1 ---
Date of Service
Date of Service: October 02, 2023
Today's Communication
Continue antibiotics. See below�
Assessment / Plan
# Infected stage IV osteo of sacrum. Suspect chronic osteo
# MRSA colonization
- 09/29/23 s/p I+D, coccyx bone exposed
- Prelim OR cx reveal Proteus mirabilis, S. aureus (MRSA), Pseudomonas aeruginosa plus additional GNR
- Continue vancomycin (d#5)
- Continue cefepime 2gIV q12 and metronidazole 500mg po q8 (d4 abx) for an additional 5-7 days
- If no plans for flap closure, no benefit in long course IV antibiotics.
#Enterobacter, Klebsiella bacteruria
- Suprapubic catheter changed 09/29/23
# Additional Medical History
DM, diet controlled
Asthma
HTN
depression
Bipolar I
hx necrotizing fasciitis s/p penectomy/orchiectomy 2012
chronic suprapubic catheter
hx Vertical sleeve gastrectomy 2017
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
Hemorrhage s/p ORION, J tube, ileostomy 05/2023
chronic stage 4 sacral decubitus, s/p I+D 08/25/23 at [facility] [address]
Cholecystectomy
Hx Tracheostomy
left BKA
Chief Complaint
-: Other (Stage IV sacral wound)
Subjective / Review of Systems
Patient seen and examined. Reports mild discomfort in the buttock area.
Review of Systems: No Fever and No Chills
Vital Signs / Physical Exam
Vital Signs
Vital Signs
Temp Pulse Resp BP Pulse Ox
99.3 F 81 15 132/80 98
10/02/23 04:00 10/02/23 09:26 10/02/23 09:26 10/02/23 09:26 10/02/23 07:40
Physical Exam
Constitutional: No Acute Distress, Comfortable, Chronically Ill and Non-toxic
Eyes: Sclera Anicteric
Cardiovascular: S1/S2; Negative S3/S4
Pulmonary: Non Labored
Gastrointestinal: Soft and Non Distended
Wound: Other (Sacral wound dressed. Little significant malodor.)
Neurological: Awake and Alert
Psychological: Calm
Objective Data
Lab Data
Lab Results
10/02/23 04:13
10/02/23 04:13
PT 17.2 Sec (11.4-14.6) H 09/29/23 06:26
INR 1.42 09/29/23 06:26
APTT 50.0 Sec (23.4-35.0) H 09/29/23 06:26
Estimated Creat Clear 91 ml/min 10/02/23 04:13
Lactic Acid Cancelled 09/28/23 22:45
Total Bilirubin 0.3 mg/dl (0.2-1.3) 09/29/23 06:26
AST 21 U/L (17-59) 09/29/23 06:26
ALT 32 U/L (0-50) 09/29/23 06:26
Alkaline Phosphatase 435 U/L (38-126) H 09/29/23 06:26
Most recent labs reviewed.
Micro Results:
09/29/23 17:00 Tissue Culture - Preliminary
Other-Please specify - Other Pseudomonas aeruginosa
Gram negative bacilli
Proteus mirabilis
Gram Stain - Preliminary
09/29/23 17:00 Wound Culture - Final
Sacral Proteus mirabilis
Staph aureus MRSA
Gram Stain - Final
09/28/23 18:51 Blood Culture - Preliminary
Blood/Venous No Growth in 72 hours- Final report to follow
09/28/23 18:51 Blood Culture - Preliminary
Blood/Venous No Growth in 72 hours- Final report to follow
09/28/23 19:50 Urine Culture - Final
Urine Enterobacter cloacae
Klebsiella pneumoniae
09/30/23 05:47 MRSA Screen - Final
Nose Staph aureus MRSA
09/29/23 CXR: Extremely low lung volumes are noted with some likely minor bibasilar atelectatic changes. No pleural effusion or pneumothorax. Right PICC in place
Care Review
Plan reviewed with: Physician (Hospitalist)
--- NOTE | 2023-10-02 11:55 | CM ---
CM following re: discharge planning.
According to pt is medically stable to be discharged to [facility].
CM spoke to [facility] liaison and she confirmed that pt is accepted for admission today to [facility]. Both pt and his mother are aware, expressed their agreement. IMM reviewed, placed in chart, pt has a copy.
Transportation is arranged with Acute care ambulance BLS with pickling grader time 2:00 p.m. PMNC completed, left with .
[facility] nursing report: [phone]
Discharge instructions fax: [phone]
D/C plan: [facility].
[2023-10-02] MEDS: FLUZONE QUAD 2023-2024 SYRINGE 0.5 ML IM (12:36)
[2023-10-02] MEDS: VANCOCIN 150 IV (12:42)
== END 2023-10-02 14:16 | DRG 853 ==
LOC: ICU 21:25
PROVIDERS: Nurse Practitioner Primary Care; Specialist; ADMITTING PHYSICIAN Hospitalist; ATTENDING PHYSICIAN Internal Medicine; CONSULT PHYSICIAN Surgery; EMERGENCY PHYSICIAN Emergency Medicine; FAMILY PHYSICIAN Internal Medicine; OTHER PHYSICIAN Internal Medicine; OTHER PHYSICIAN Internal Medicine Infectious Disease
PROC: 0JB70ZZ Excision of Back Subcutaneous Tissue and Fascia, Open Approach (ICD-10-PCS; 2023-09-29)
PROC: 0T2BX0Z Change Drainage Device in Bladder, External Approach (ICD-10-PCS; 2023-09-30)
DX: A41.9 Sepsis, unspecified organism (principal); E43 Unspecified severe protein-calorie malnutrition; L89.154 Pressure ulcer of sacral region, stage 4; G92.8 Other toxic encephalopathy; J96.90 Respiratory failure, unspecified, unspecified whether with hypoxia or hypercapnia; R65.21 Severe sepsis with septic shock; T83.518A Infection and inflammatory reaction due to other urinary catheter, initial encounter; E87.1 Hypo-osmolality and hyponatremia; F11.20 Opioid dependence, uncomplicated; M86.9 Osteomyelitis, unspecified; D63.8 Anemia in other chronic diseases classified elsewhere; E83.52 Hypercalcemia; F10.21 Alcohol dependence, in remission; F32.A Depression, unspecified; F41.9 Anxiety disorder, unspecified; I10 Essential (primary) hypertension; Z68.26 Body mass index [BMI] 26.0-26.9, adult
CPT/HCPCS: 71045; 80048; 80053; 80202; 81003; 81015; 82607; 82728; 82962; 83540; 83550; 83605; 83735; 84443; 85025; 85027; 85610; 85730; 86850; 86900; 86901; 86920; 87040; 87070; 87071; 87077; 87086; 87147; 87176; 87186; 87205; 90686; 93005; 94640; 96365; 96375; 97163; 99285; 99291; G0008; P9016